=== PATIENT | male | born 1950 | race Caucasian/White ===

== ENCOUNTER 2018-08-03 17:44 | Emergency (ER) | payer MEDICARE ==
[2018-08-03] MEDS ORDERED: Sodium Chloride 0.9% 2.5 ML Syringe FLUSH PRN (20:03)
[2018-08-03] MEDS ORDERED: Sodium Chloride 0.9% 10 ML Syringe FLUSH PRN (20:03)
--- NOTE | 2018-08-03 20:12 | EDM.PDOC ---
ED [facility] GENERAL MEDICAL PROBLEM - General Chief Complaint: Gastrointestinal Problem Stated Complaint: PROBLEMS WITH HERNIA Time Seen by Provider: 08/03/18 19:56 Source of Information: Reports: Patient History Limitations: Reports: No Limitations - History of Present Illness INITIAL COMMENTS - FREE TEXT/NARRATIVE: HISTORY AND PHYSICAL: History of present illness: Patient is a 67-year-old male who presents to the ED today with concern of an infection or an issue with his surgical hernia. Patient states he has a long and complicated abdominal surgical history that entailed bowel resection and multiple repairs of his abdomen following a C. difficile infection in 2016. Patient states that since then he has had a hernia of his incision site that has never bothered him. Patient states over the past couple days he started to have an increase in pain in the hernia and starting yesterday and today he is noticed redness that is begun to expand past the hernia. Patient expresses pain with palpation of the hernia area. Patient states he is having a triple bypass surgery done in a few weeks and is Hernandez. Patient denies any chest pain today. Patient denies fever, chills, chest pain, shortness of breath, or cough. Denies headache, neck stiff ness, change in vision, syncope, or near syncope. Denies nausea, vomiting, abdominal pain, diarrhea, constipation, or dysuria. Has not noted any blood in urine or stool. Patient has been eating and drinking appropriately. Patient also has a history of diabetes and atrial fibrillation. Review of systems: As per history of present illness and below otherwise all systems reviewed and negative. Past medical history: As per history of present illness and as reviewed below otherwise noncontributory. Surgical history: As per history of present illness and as reviewed below otherwise noncontributory. Social history: See social history for further information Family history: As per history of present illness and as reviewed below otherwise noncontributory. Physical exam: Physical exam is limited due to body habitus. General: Patient is alert, oriented, and in no acute distress. Patient sitting comfortably on exam table. HEENT: Atraumatic, normocephalic, pupils equal and reactive bilaterally, negative for conjunctival pallor or scleral icterus, mucous membranes moist, TMs normal bilaterally, throat clear, neck supple, nontender, trachea midline. No drooling or trismus noted. No meningeal signs. No hot potato voice noted. Lungs: Clear to auscultation, breath sounds equal bilaterally, chest nontender. Heart: S1S2, regular rate and rhythm without overt murmur Abdomen: See skin. Morbidly obese. Soft, nondistended, nontender. Negative for masses or hepatosplenomegaly. Negative for costovertebral tenderness. Pelvis: Stable nontender. Genitourinary: Deferred. Rectal: Deferred. Skin: There is a large scarring consistent with surgical history over her entire abdomen. At the top of the vertical scar where the sternum in the abdomen meet is erythematous and painful to palpation. Exam is limited due to pain. Extremities: Atraumatic, negative for cords or calf pain. Neurovascular unremarkable. Neuro: Awake, alert, oriented. Cranial nerves II through XII unremarkable. Cerebellum unremarkable. Motor and sensory unremarkable throughout. Exam nonfocal. Notes: Dr. Bolanos is directly involved in patient care. Soft tissue lesion consistent with abscess. Did discuss this finding as well as all other CT findings and need to have this followed up. Consult Dr. Resendez who states our facility is not equipped to handle patients obesity as well as comorbidities and thinks transfer is necessary. [facility], Dr. Gonzalez/ are accepting of patient transfer via ground EMS. While in the transfer process, patient began to have SVT. Cardizem given. Continued to monitor and patient's heart rate came down from 150's to 110 -120. Voices understanding and is agreeable to plan of care. Denies any further questions or concerns at this time. Diagnostics: CBC, CMP, lipase, abdominal pelvic CT, cardizem, zosyn, vanc, EKG Therapeutics: Saline lock Impression: Soft tissue/abdominal wall abscess Plan: 1. Transfer to [facility] to Dr. Bruce/ via EMS Definitive disposition and diagnosis as appropriate pending reevaluation and review of above. Middle Abdomen Pain Score (Numeric/FACES): 6 - Related Data Allergies Allergy/AdvReac Type Severity Reaction Status Date / Time No Known Allergies Allergy Verified 08/03/18 19:05 Home Meds: Home Meds Aspirin 81 mg PO DAILY 01/11/15 [History] Iron 325 mg PO DAILY 01/11/15 [History] Metoprolol Tartrate [Lopressor] 3 tab PO BID 01/11/15 [History] Multivitamin [Multiple Vitamins] 1 tab PO DAILY 01/11/15 [History] atorvaSTATin [Lipitor] 20 mg PO BEDTIME 01/11/15 [History] metFORMIN [Glucophage] 1,000 mg PO BIDMEALS 01/11/15 [History] Past Medical History Cardiovascular History: Reports: Afib, High Cholesterol, Hypertension Respiratory History: Reports: None Gastrointestinal History: Reports: None Genitourinary History: Reports: None Musculoskeletal History: Reports: Amputation Neurological History: Reports: Neuropathy, Peripheral Psychiatric History: Reports: None Endocrine/Metabolic History: Reports: Diabetes, Type II Hematologic History: Reports: None Immunologic History: Reports: None Oncologic (Cancer) History: Reports: None Other Dermatologic History: surgical incision still healing - Infectious Disease History Infectious Disease History: Reports: C-Difficile, Chicken Pox - Past Surgical History Head Surgeries/Procedures: Reports: None HEENT Surgical History: Reports: Oral Surgery Respiratory Surgical History: Reports: None GI Surgical History: Reports: Other (See Below) Other GI Surgeries/Procedures: mid upper stomach hernia Male Surgical History: Reports: None Neurological Surgical History: Reports: None Musculoskeletal Surgical History: Reports: Amputation Other Musculoskeletal Surgeries/Procedures:: left hand 4 fingers amputation. Oncologic Surgical History: Reports: None Dermatological Surgical History: Reports: None Social & Family History - Family History Family Medical History: Noncontributory - Tobacco Use Smoking Status *Q: Former Smoker Used Tobacco, but Quit: Yes Month/Year Tobacco Last Used: 1988 - Caffeine Use Caffeine Use: Reports: None - Recreational Drug Use Recreational Drug Use: No ED ROS GENERAL - Review of Systems Review Of Systems: ROS reveals no pertinent complaints other than HPI. ED EXAM, GI/ABD - Physical Exam Exam: See Below (See dictation) Course - Vital Signs Last Recorded V/S: Last Vital Signs Temp 36.7 C 08/03/18 18:57 Pulse 118 H 08/03/18 22:47 Resp 18 08/03/18 22:47 BP 133/74 08/03/18 22:47 Pulse Ox 97 08/03/18 22:47 - Orders/Labs/Meds Orders: Active Orders 24 hr Category Date Time Status Piperacillin/Tazobactam [Piperacil-Tazobact] 3.375 gm Med 08/03/18 23:17 Ordered Sodium Chloride 0.9% [Normal Saline] 50 ml IV ONETIME Sodium Chloride 0.9% [Normal Saline] 1,000 ml Med 08/03/18 22:22 Ordered IV STAT Sodium Chloride 0.9% [Saline Flush] Med 08/03/18 20:03 Active 10 ml FLUSH ASDIRECTED PRN Sodium Chloride 0.9% [Saline Flush] Med 08/03/18 20:03 Active 2.5 ml FLUSH ASDIRECTED PRN Vancomycin [Vancocin] 1 gm Med 08/03/18 23:17 Ordered Sodium Chloride 0.9% [Normal Saline] 250 ml IV ONETIME Saline Lock Insert [OM.PC] Stat Oth 08/03/18 20:03 Ordered Medication Orders Sodium Chloride (Normal Saline) 1,000 mls @ 999 mls/hr IV STAT ONE Stop: 08/03/18 23:22 Last Admin: 08/03/18 22:32 Dose: 999 mls/hr Piperacillin Sod/Tazobactam (Sod 3.375 gm/ Sodium Chloride) 50 mls @ 100 mls/ hr IV ONETIME ONE Stop: 08/03/18 23:46 Vancomycin HCl 1 gm/ Sodium (Chloride) 250 mls @ 250 mls/hr IV ONETIME ONE Stop: 08/04/18 00:16 Sodium Chloride (Saline Flush) 10 ml FLUSH ASDIRECTED PRN PRN Reason: Keep Vein Open Last Admin: 08/03/18 21:11 Dose: 10 ml Sodium Chloride (Saline Flush) 2.5 ml FLUSH ASDIRECTED PRN PRN Reason: Keep Vein Open Last Admin: 08/03/18 21:10 Dose: 2.5 ml Labs: Laboratory Tests 08/03/18 08/03/18 Range/Units 20:25 20:25 WBC 12.15 H (4.0-11.0) K/uL RBC 4.65 (4.50-5.90) M/uL Hgb 13.3 (13.0-17.0) g/dL Hct 39.9 (38.0-50.0) % MCV 85.8 (80.0-98.0) fL MCH 28.6 (27.0-32.0) pg MCHC 33.3 (31.0-37.0) g/dL RDW Std Deviation 46.2 (28.0-62.0) fl RDW Coeff of Yvonne 15 (11.0-15.0) % Plt Count 296 (150-400) K/uL MPV 10.70 (7.40-12.00) fL Neut % (Auto) 78.9 (48.0-80.0) % Lymph % (Auto) 12.5 L (16.0-40.0) % [place] % (Auto) 6.7 (0.0-15.0) % Eos % (Auto) 1.6 (0.0-7.0) % Baso % (Auto) 0.3 (0.0-1.5) % Neut # (Auto) 9.6 H (1.4-5.7) K/uL Lymph # (Auto) 1.5 (0.6-2.4) K/uL [place] # (Auto) 0.8 (0.0-0.8) K/uL Eos # (Auto) 0.2 (0.0-0.7) K/uL Baso # (Auto) 0.0 (0.0-0.1) K/uL Nucleated RBC % 0.0 /100WBC Nucleated RBCs # 0 K/uL Sodium 135 L (136-148) mmol/L Potassium 3.2 L (3.5-5.1) mmol/L Chloride 99 (98-107) mmol/L Carbon Dioxide 19.2 L (21.0-32.0) mmol/L BUN 31 H (7.0-18.0) mg/dL Creatinine 1.9 H (0.8-1.3) mg/dL Est Cr Clr Drug Dosing 36.00 mL/min Estimated GFR (MDRD) 35.4 ml/min Glucose 185 H (74-106) mg/dL Calcium 9.0 (8.5-10.1) mg/dL Total Bilirubin 0.4 (0.2-1.0) mg/dL AST 19 (15-37) IU/L ALT 26 (14-63) IU/L Alkaline Phosphatase 77 (46-116) U/L Total Protein 8.2 (6.4-8.2) g/dL Albumin 3.4 (3.4-5.0) g/dL Globulin 4.8 H (2.6-4.0) g/dL Albumin/Globulin Ratio 0.7 L (0.9-1.6) Lipase 370 (73-393) U/L Meds: Medications Generic Name Dose Route Start Last Admin Trade Name Freq PRN Reason Stop Dose Admin Sodium Chloride 1,000 mls @ 999 mls/hr 08/03/18 22:22 08/03/18 22:32 Normal Saline IV 08/03/18 23:22 999 mls/hr STAT ONE Administration Piperacillin Sod/Tazobactam 50 mls @ 100 mls/hr 08/03/18 23:17 Sod 3.375 gm/ Sodium Chloride IV 08/03/18 23:46 ONETIME ONE Vancomycin HCl 1 gm/ Sodium 250 mls @ 250 mls/hr 08/03/18 23:17 Chloride IV 08/04/18 00:16 ONETIME ONE Sodium Chloride 10 ml 08/03/18 20:03 08/03/18 21:11 Saline Flush FLUSH 10 ml ASDIRECTED PRN Administration Keep Vein Open Sodium Chloride 2.5 ml 08/03/18 20:03 08/03/18 21:10 Saline Flush FLUSH 2.5 ml ASDIRECTED PRN Administration Keep Vein Open Discontinued Medications Generic Name Dose Route Start Last Admin Trade Name Freq PRN Reason Stop Dose Admin Diltiazem HCl 20 mg 08/03/18 22:22 08/03/18 22:25 Diltiazem IVPUSH 08/03/18 22:23 20 mg ONETIME ONE Administration Diltiazem HCl Confirm 08/03/18 22:23 08/03/18 22:36 Diltiazem Administered 08/03/18 22:24 Not Given Dose 25 mg .ROUTE .STK-MED ONE Diltiazem HCl 20 mg 08/03/18 23:09 Diltiazem IVPUSH 08/03/18 23:10 ONETIME ONE Departure - Departure Time of Disposition: 23:15 Disposition: DC/Tfer to Acute Hospital 02 Clinical Impression: Abdominal abscess - Discharge Information Referrals: Francesco Henry MD [Primary Care Provider] - Forms: ED Department Discharge - My Orders Last 24 Hours: My Active Orders 08/03/18 20:03 Sodium Chloride 0.9% [Saline Flush] 10 ml FLUSH ASDIRECTED PRN Sodium Chloride 0.9% [Saline Flush] 2.5 ml FLUSH ASDIRECTED PRN Saline Lock Insert [OM.PC] Stat 08/03/18 22:22 Sodium Chloride 0.9% [Normal Saline] 1,000 ml IV STAT 08/03/18 23:17 Piperacillin/Tazobactam [Piperacil-Tazobact] 3.375 gm Sodium Chloride 0.9% [ Normal Saline] 50 ml IV ONETIME Vancomycin [Vancocin] 1 gm Sodium Chloride 0.9% [Normal Saline] 250 ml IV ONETIME - Assessment/Plan Last 24 Hours: My Active Orders 08/03/18 20:03 Sodium Chloride 0.9% [Saline Flush] 10 ml FLUSH ASDIRECTED PRN Sodium Chloride 0.9% [Saline Flush] 2.5 ml FLUSH ASDIRECTED PRN Saline Lock Insert [OM.PC] Stat 08/03/18 22:22 Sodium Chloride 0.9% [Normal Saline] 1,000 ml IV STAT 08/03/18 23:17 Piperacillin/Tazobactam [Piperacil-Tazobact] 3.375 gm Sodium Chloride 0.9% [ Normal Saline] 50 ml IV ONETIME Vancomycin [Vancocin] 1 gm Sodium Chloride 0.9% [Normal Saline] 250 ml IV ONETIME
--- NOTE | 2018-08-03 21:54 | CT ---
INDICATION: Abdominal pain. COMPARISON: None. TECHNIQUE: CT abdomen and pelvis without intravenous or oral contrast; coronal and sagittal reformats. Findings: It does appear the patient had hernia repair in the epigastric region. The transverse colon is underneath the hernia repair site/mesh. A 6 x 2.7 cm soft tissue density in the subcutaneous soft tissues; rule out infection, slice 11 series 201. No abnormal intra pulmonary nodular densities through the lung bases. No evidence of pleural effusion. Normal size cardiac silhouette without any evidence of pericardial effusion. No focal hepatic or splenic pathology. No pancreatic pathology. Cholelithiasis. No adrenal pathology. A 10 x 5.8 mm stone identified in the right renal pelvis at the confluence of the superior and inferior infundibulum , with mild right-sided hydronephrosis. A 4 x 3.4 cm cyst left kidney. A 2.3 x 2 cm isodense lesion on the surface of the left kidney slice 61 series 201; this needs further assessment to rule out a small renal cell carcinoma. No obstructive uropathy or perinephric pathology on the left side. No retroperitoneal lymphadenopathy. No evidence of abdominal or pelvic ascites. No pneumoperitoneum or intestinal obstruction. Redundant sigmoid colon. It does appear the patient has had right hemicolectomy with ileocolic anastomosis. IMPRESSION: 1. Status post ventral hernia repair with the transverse colon underneath the mesh. 2. A 6.1 x 2.7 cm soft tissue density in the subcutaneous soft tissues at the site of hernia repair; rule out information ;rule out abscess. 3. Cholelithiasis. 4. A 10 x 6 mm stone in the right renal pelvis with mild dilatation of the renal calyces. 5. A 2 cm lesion on the surface of the left kidney ;needs further assessment to rule out small solid renal cell carcinoma. Please note that all CT scans at this facility use dose modulation, iterative reconstruction, and/or weight-based dosing when appropriate to reduce radiation dose to as low as reasonably achievable. Dictated by Luis Lorenzo MD @ Aug 03 2018 9:44PM Signed by Dr. Luis Lorenzo @ Aug 03 2018 9:51PM
[2018-08-03] MEDS ORDERED: Sodium Chloride 0.9% 1,000 ML IV ONE (22:22)
[2018-08-03] MEDS ORDERED: Diltiazem 25 MG/5 ML SDV IVPUSH ONE ×2 (22:22→23:09)
[2018-08-03] MEDS ORDERED: Diltiazem 25 MG/5 ML SDV ONE (22:23)
[2018-08-03] MEDS ORDERED: Piperacillin/Tazobactam 3.375 GM in Sodium Chloride 0.9% 50 ML IV ONE (23:17)
[2018-08-04 00:19] VITALS: BP 123/82
== END 2018-08-04 00:19 ==
LOC: MW.ED 17:44
DX: L02.211 Cutaneous abscess of abdominal wall (principal); I48.91 Unspecified atrial fibrillation; E78.00 Pure hypercholesterolemia, unspecified; I10 Essential (primary) hypertension; E11.42 Type 2 diabetes mellitus with diabetic polyneuropathy; Z87.891 Personal history of nicotine dependence; Z79.82 Long term (current) use of aspirin; Z79.899 Other long term (current) drug therapy; Z79.84 Long term (current) use of oral hypoglycemic drugs
CPT/HCPCS: 74176; 80053; 83690; 85025; 93005; 96361; 96365; 96375; 96376; 99285; J2543; J3370; J3490; J7040; J7050; 99284

== ENCOUNTER 2019-10-03 13:29 | Observation (INO) | payer MEDICARE, OTHER ==
[2019-10-03] MEDS ORDERED: Sodium Chloride 0.9% 2.5 ML Syringe FLUSH PRN (13:51)
[2019-10-03] MEDS ORDERED: Sodium Chloride 0.9% 10 ML Syringe FLUSH PRN (13:51)
--- NOTE | 2019-10-03 14:07 | EDM.PDOC ---
ED HPI GENERAL MEDICAL PROBLEM - General Chief Complaint: General Stated Complaint: SENT IN BY DR Damon Time Seen by Provider: 10/03/19 13:49 Source of Information: Reports: Patient History Limitations: Reports: No Limitations - History of Present Illness INITIAL COMMENTS - FREE TEXT/NARRATIVE: 68-year-old male with history of atrial fibrillation, HTN, DM 2, CAD with stent was sent here from cardiology office by Dr. Damon for INR = 14.5 today. He is status post heart cath 1 month ago, at that time he was instructed to hold his Coumadin but he mistakenly continued to take it. He is currently taking aspirin, Plavix, Coumadin 5 mg in the afternoon. He claims he misunderstood Dr. Damon's instructions. He denies any chest pain, abdominal pain, shortness of breath, headache, blurry vision, bruising, mucosal bleeding, nosebleeds, rectal bleeding, nausea, vomiting, diarrhea, black stools, weakness. ROS: A 10-point review of systems, other than pertinent positives and negatives as stated per HPI, is otherwise negative PHYSICAL EXAM General: AOx4, GCS = 15, No distress HEENT: dry mucous membrane, no pale conjunctiva Neck: supple, no meningismus, no Kernig or Brudzinski Cardiac: S1S2 irregular rhythm, regular rate Respiratory: CTAB, no crackles or rales, no wheezing Abdomen: Soft, nontender, no rebound or guarding, nondistended, no pulsatile mass. Back: nontender Musculoskeletal: NVI distally, no deformity Neuro: No focal deficits. Skin: No ecchymosis noted. - Related Data Allergies Allergy/AdvReac Type Severity Reaction Status Date / Time No Known Allergies Allergy Verified 10/03/19 13:42 Home Meds: Home Meds Aspirin 81 mg PO DAILY 01/11/15 [History] Iron 325 mg PO DAILY 01/11/15 [History] Metoprolol Tartrate [Lopressor] 3 tab PO BID 01/11/15 [History] Multivitamin [Multiple Vitamins] 1 tab PO DAILY 01/11/15 [History] atorvaSTATin [Lipitor] 20 mg PO BEDTIME 01/11/15 [History] metFORMIN [Glucophage] 1,000 mg PO BIDMEALS 01/11/15 [History] Past Medical History Cardiovascular History: Reports: Afib, High Cholesterol, Hypertension, Stents Other Cardiovascular History: 5 stents Respiratory History: Reports: None Gastrointestinal History: Reports: None Genitourinary History: Reports: None Musculoskeletal History: Reports: Amputation Neurological History: Reports: Neuropathy, Peripheral Psychiatric History: Reports: None Endocrine/Metabolic History: Reports: Diabetes, Type II Hematologic History: Reports: None Immunologic History: Reports: None Oncologic (Cancer) History: Reports: Colon 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 Other Dermatologic History: surgical incision still healing - Infectious Disease History Infectious Disease History: Reports: Chicken Pox, Measles, Mumps - Past Surgical History Head Surgeries/Procedures: Reports: None HEENT Surgical History: Reports: Oral Surgery Respiratory Surgical History: Reports: None GI Surgical History: Reports: Other (See Below) Other GI Surgeries/Procedures: mid upper stomach hernia Male Surgical History: Reports: None Neurological Surgical History: Reports: None Musculoskeletal Surgical History: Reports: Amputation Other Musculoskeletal Surgeries/Procedures:: left hand 4 fingers amputation. Oncologic Surgical History: Reports: None Dermatological Surgical History: Reports: None Social & Family History - Family History Family Medical History: Noncontributory - Tobacco Use Smoking Status *Q: Never Smoker - Caffeine Use Caffeine Use: Reports: None ED ROS GENERAL - Review of Systems Review Of Systems: Comprehensive ROS is negative, except as noted in HPI. ED EXAM, GENERAL - Physical Exam Exam: See Below (see dictation) EKG INTERPRETATION EKG Date: 10/03/19 Time: 13:36 Rhythm: A-Fib Rate (Beats/Min): 62 QRS: Normal ST-T: Normal QT: Normal EKG Interpretation Comments: Afib Course - Vital Signs Last Recorded V/S: Last Vital Signs Temp 98.6 F 10/03/19 13:37 Pulse 68 10/03/19 13:37 Resp 20 10/03/19 13:37 BP 137/60 10/03/19 13:37 Pulse Ox 99 10/03/19 13:37 - Orders/Labs/Meds Orders: Active Orders 24 hr Category Date Time Status Admission Status [Patient Status] [ADT] Stat ADT 10/03/19 15:09 Ordered Cardiac Monitoring [RC] . DIRECTED Care 10/03/19 13:51 Active EKG Documentation Completion [RC] STAT Care 10/03/19 13:52 Active Pulse Oximetry [RC] ASDIRECTED Care 10/03/19 13:51 Active Phytonadione [AquaMephyton] 5 mg Med 10/03/19 15:09 Ordered Sodium Chloride 0.9% [Normal Saline] 50 ml IV NOW Sodium Chloride 0.9% [Saline Flush] Med 10/03/19 13:51 Active 10 ml FLUSH ASDIRECTED PRN Sodium Chloride 0.9% [Saline Flush] Med 10/03/19 13:51 Active 2.5 ml FLUSH ASDIRECTED PRN Saline Lock Insert [OM.PC] Stat Oth 10/03/19 13:52 Ordered Medication Orders Phytonadione 5 mg/ Sodium (Chloride) 50.5 mls @ 100 mls/hr IV NOW ONE Stop: 10/03/19 15:39 Sodium Chloride (Saline Flush) 10 ml FLUSH ASDIRECTED PRN PRN Reason: Keep Vein Open Last Admin: 10/03/19 13:55 Dose: 10 ml Documented by: [email or web address] Sodium Chloride (Saline Flush) 2.5 ml FLUSH ASDIRECTED PRN PRN Reason: Keep Vein Open Last Admin: 10/03/19 13:55 Dose: 2.5 ml Documented by: [id number] Labs: Laboratory Tests 10/03/19 10/03/19 10/03/19 Range/Units 14:10 14:10 14:10 WBC 7.27 (4.0-11.0) K/uL RBC 3.94 L (4.50-5.90) M/uL Hgb 11.9 L (13.0-17.0) g/dL Hct 36.7 L (38.0-50.0) % MCV 93.1 (80.0-98.0) fL MCH 30.2 (27.0-32.0) pg MCHC 32.4 (31.0-37.0) g/dL RDW Std Deviation 50.2 (28.0-62.0) fl RDW Coeff of Yvonne 15 (11.0-15.0) % Plt Count 221 (150-400) K/uL MPV 10.60 (7.40-12.00) fL Neut % (Auto) 75.5 (48.0-80.0) % Lymph % (Auto) 16.9 (16.0-40.0) % [place] % (Auto) 5.1 (0.0-15.0) % Eos % (Auto) 2.1 (0.0-7.0) % Baso % (Auto) 0.4 (0.0-1.5) % Neut # (Auto) 5.5 (1.4-5.7) K/uL Lymph # (Auto) 1.2 (0.6-2.4) K/uL [place] # (Auto) 0.4 (0.0-0.8) K/uL Eos # (Auto) 0.2 (0.0-0.7) K/uL Baso # (Auto) 0.0 (0.0-0.1) K/uL Nucleated RBC % 0.0 /100WBC Nucleated RBCs # 0 K/uL INR > 14.54 H* APTT 71.7 H (18.6-31.3) SEC Sodium 136 (136-148) mmol/L Potassium 4.0 (3.5-5.1) mmol/L Chloride 103 (98-107) mmol/L Carbon Dioxide 18.4 L (21.0-32.0) mmol/L BUN 28 H (7.0-18.0) mg/dL Creatinine 2.1 H (0.8-1.3) mg/dL Est Cr Clr Drug Dosing 34.28 mL/min Estimated GFR (MDRD) 31.5 ml/min Glucose 227 H (74-106) mg/dL Calcium 8.3 L (8.5-10.1) mg/dL Total Bilirubin 0.4 (0.2-1.0) mg/dL AST 27 (15-37) IU/L ALT 30 (14-63) IU/L Alkaline Phosphatase 72 (46-116) U/L Troponin I < 0.050 (0.000-0.056) ng/mL Total Protein 7.1 (6.4-8.2) g/dL Albumin 3.5 (3.4-5.0) g/dL Globulin 3.6 (2.6-4.0) g/dL Albumin/Globulin Ratio 1.0 (0.9-1.6) Meds: Medications Generic Name Dose Route Start Last Admin Trade Name [place] PRN Reason Stop Dose Admin Phytonadione 5 mg/ Sodium 50.5 mls @ 100 mls/hr 10/03/19 15:09 Chloride IV 10/03/19 15:39 NOW ONE Sodium Chloride 10 ml 10/03/19 13:51 10/03/19 13:55 Saline Flush FLUSH 10 ml ASDIRECTED PRN Administration Keep Vein Open Sodium Chloride 2.5 ml 10/03/19 13:51 10/03/19 13:55 Saline Flush FLUSH 2.5 ml ASDIRECTED PRN Administration Keep Vein Open - Re-Assessments/Exams Free Text/Narrative Re-Assessment/Exam: 10/03/19 15:11 I will give 5mg IV vitamin K for his supratherapeutic INR. Case discussed with Dr. Cook, who agrees to admit to obs/tele. Her documentation supersedes all other documentation on this patient with regard to any conflicts or discrepancies from this point forward. Any emergency conditions have been treated to the ability of the ED prior to admission. Departure - Departure Time of Disposition: 15:12 Disposition: Refer to Observation Condition: Good Clinical Impression: Supratherapeutic INR, JACIEL (acute kidney injury) - Discharge Information *PRESCRIPTION DRUG MONITORING PROGRAM REVIEWED*: Not Applicable *COPY OF PRESCRIPTION DRUG MONITORING REPORT IN PATIENT JOSE LUIS: Not Applicable Referrals: Francesco Henry MD [Primary Care Provider] - Forms: ED Department Discharge Critical Care Note - Critical Care Note Total Time (mins): 40 Comments: The high probability of sudden, clinically significant deterioration in the patient's condition required the highest level of my preparedness to intervene urgently. The services I provided to this patient were to treat and/or prevent clinically significant deterioration. Services included the following: chart data review, reviewing nursing notes and/or old charts, documentation time, planning consultant collaboration regarding findings and treatment options, medication orders and management, direct patient care, vital sign assessments and ordering, interpreting and reviewing diagnostic studies/lab tests. Aggregate critical care time includes only time during which I was engaged in work directly related to the patient's care, as described above, whether at the bedside or elsewhere in the Emergency Department. It did not include time spent performing other reported procedures or the services of residents, students, nurses or physician assistants. Frequent interventions and/or frequent repeat evaluations were required as well as counseling and coordination of care regarding prognosis, treatments, and discussions with patient, staff and consultants. Critical Care (excluding other procedures): 40 minutes Sepsis Event Note (ED) - Evaluation Sepsis Screening Result: No Definite Risk - Focused Exam Vital Signs: Vital Signs Temp Pulse Resp BP Pulse Ox 10/03/19 13:37 98.6 F 68 20 137/60 99 - My Orders Last 24 Hours: My Active Orders 10/03/19 13:51 Cardiac Monitoring [RC] . DIRECTED Pulse Oximetry [RC] ASDIRECTED Sodium Chloride 0.9% [Saline Flush] 10 ml FLUSH ASDIRECTED PRN Sodium Chloride 0.9% [Saline Flush] 2.5 ml FLUSH ASDIRECTED PRN 10/03/19 13:52 EKG Documentation Completion [RC] STAT Saline Lock Insert [OM.PC] Stat 10/03/19 15:09 Admission Status [Patient Status] [ADT] Stat Phytonadione [AquaMephyton] 5 mg Sodium Chloride 0.9% [Normal Saline] 50 ml IV NOW - Assessment/Plan Last 24 Hours: My Active Orders 10/03/19 13:51 Cardiac Monitoring [RC] . DIRECTED Pulse Oximetry [RC] ASDIRECTED Sodium Chloride 0.9% [Saline Flush] 10 ml FLUSH ASDIRECTED PRN Sodium Chloride 0.9% [Saline Flush] 2.5 ml FLUSH ASDIRECTED PRN 10/03/19 13:52 EKG Documentation Completion [RC] STAT Saline Lock Insert [OM.PC] Stat 10/03/19 15:09 Admission Status [Patient Status] [ADT] Stat Phytonadione [AquaMephyton] 5 mg Sodium Chloride 0.9% [Normal Saline] 50 ml IV NOW
[2019-10-03 14:49] LABS: BLOOD UREA NITROGEN,BUN 28 mg/dL (7.0-18.0); CARBON DIOXIDE,CO2 18.4 mmol/L (21.0-32.0); CHLORIDE,CL 103 mmol/L (98-107); GLUCOSE RANDOM 227 mg/dL (74-106); SODIUM,NA 136 mmol/L (136-148)
[2019-10-03] MEDS ORDERED: Phytonadione 5 MG in Sodium Chloride 0.9% 50 ML IV ONE (15:09)
[2019-10-03] MEDS ORDERED: Albuterol/Ipratropium 3.0-0.5 MG/3 ML Neb Soln NEB PRN (15:46)
--- NOTE | 2019-10-03 15:54 | PCM.HP.2 ---
H&P History of Present Illness - General Date of Service: 10/03/19 Admit Problem/Dx: Admission Diagnosis/Problem Admission Diagnosis/Problem Encounter for monitoring coumadin therapy - History of Present Illness Initial Comments - Free Text/Narative: 68-year-old male with history of atrial fibrillation, HTN, DM 2, CAD with stent was sent here from cardiology office due to critical lab value if INR> 14.5 today. He is status post heart cath 1 month ago, at that time he was instructed to hold his Coumadin and follow up with his PCP in a week but he mistakenly continued to take it He took Coumadin 5 mg in the afternoon. He denies any chest pain, abdominal pain, shortness of breath, headache, blurry vision, bruising, mucosal bleeding, nosebleeds, rectal bleeding, nausea, vomiting, diarrhea, black stools, weakness. Rest of the labs were reassuring except for elevated creatinine of 2.1. Patient received 5mg of vit k and was admitted to hospital for further management. - Related Data Allergies/Adverse Reactions: Allergies Allergy/AdvReac Type Severity Reaction Status Date / Time No Known Allergies Allergy Verified 10/03/19 17:10 Home Medications: Home Meds Aspirin 81 mg PO DAILY 01/11/15 [History] Iron 325 mg PO DAILY 01/11/15 [History] Multivitamin [Multiple Vitamins] 1 tab PO DAILY 01/11/15 [History] atorvaSTATin [Lipitor] 20 mg PO BEDTIME 01/11/15 [History] metFORMIN [Glucophage] 1,000 mg PO BIDMEALS 01/11/15 [History] Ascorbic Acid [Vitamin C] 1,000 mg PO DAILY 10/03/19 [History] Digoxin 250 mcg PO DAILY 10/03/19 [History] Diltiazem [Cardizem CD] 120 cap PO DAILY 10/03/19 [History] Loperamide HCl [Anti-Diarrheal] 2 mg PO TIDAC 10/03/19 [History] Pioglitazone [Actos] 15 mg PO DAILY 10/03/19 [History] Potassium Gluconate [Potassium] 99 tab PO BID 10/03/19 [History] Warfarin [Coumadin] 5 mg PO DAILY 10/03/19 [History] Metoprolol Tartrate [Lopressor] 100 mg PO BID tablet 10/04/19 [Rx] Torsemide 30 mg PO DAILY #30 tablet 10/04/19 [Rx] Warfarin Dosing [Coumadin Ask] 1 each PO DAILY@1400 tablet 10/04/19 [Rx] Past Medical History Cardiovascular History: Reports: Afib, High Cholesterol, Hypertension, Stents Other Cardiovascular History: 5 stents Respiratory History: Reports: None Gastrointestinal History: Reports: None Genitourinary History: Reports: None Musculoskeletal History: Reports: Amputation Neurological History: Reports: Neuropathy, Peripheral Psychiatric History: Reports: None Endocrine/Metabolic History: Reports: Diabetes, Type II Hematologic History: Reports: None Immunologic History: Reports: None Oncologic (Cancer) History: Reports: Colon 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 Other Dermatologic History: surgical incision still healing - Infectious Disease History Infectious Disease History: Reports: Chicken Pox, Measles, Mumps - Past Surgical History Head Surgeries/Procedures: Reports: None HEENT Surgical History: Reports: Oral Surgery Respiratory Surgical History: Reports: None GI Surgical History: Reports: Other (See Below) Other GI Surgeries/Procedures: mid upper stomach hernia Male Surgical History: Reports: None Neurological Surgical History: Reports: None Musculoskeletal Surgical History: Reports: Amputation Other Musculoskeletal Surgeries/Procedures:: left hand 4 fingers amputation. Oncologic Surgical History: Reports: None Dermatological Surgical History: Reports: None Social & Family History - Family History Family Medical History: Noncontributory - Tobacco Use Smoking Status *Q: Never Smoker - Caffeine Use Caffeine Use: Reports: None H&P Review of Systems - Review of Systems: Review Of Systems: See Below General: Denies: Fever, Chills, Malaise HEENT: Denies: Dysphasia, Ear Pain Pulmonary: Denies: Shortness of Breath, Wheezing, Pleuritic Chest Pain Cardiovascular: Denies: Chest Pain, Palpitations, Dyspnea on Exertion Gastrointestinal: Denies: Abdominal Pain, Anorexia, Black Stool, Bloody Stool, Constipation, Diarrhea, Hematemesis, Hematochezia, Melena, Mucous in Stool, Nausea, Vomiting Genitourinary: Denies: Dysuria, Frequency, Burning Musculoskeletal: Denies: Neck Pain, Shoulder Pain, Arm Pain Skin: Denies: Cyanosis, Jaundice, Mottled Psychiatric: Denies: Confusion, Depression, Mood Lability Exam - Exam Exam: See Below - Vital Signs Vital Signs: Last Vital Signs Temp 37.0 C 10/03/19 13:37 Pulse 68 10/03/19 13:37 Resp 20 10/03/19 13:37 BP 137/60 10/03/19 13:37 Pulse Ox 99 10/03/19 13:37 Weight: 116.12 kg - Exam General: Alert, Oriented Neck: Supple, Trachea Midline Lungs: Clear to Auscultation, Normal Respiratory Effort Cardiovascular: Regular Rate, Regular Rhythm GI/Abdominal Exam: Normal Bowel Sounds, Soft, Non-Tender Extremities: Normal Inspection, Normal Range of Motion, Non-Tender - Patient Data Lab Results Last 24 hrs: Laboratory Results - last 24 hr 10/03/19 10/03/19 10/03/19 Range/Units 14:10 14:10 14:10 WBC 7.27 (4.0-11.0) K/uL RBC 3.94 L (4.50-5.90) M/uL Hgb 11.9 L (13.0-17.0) g/dL Hct 36.7 L (38.0-50.0) % MCV 93.1 (80.0-98.0) fL MCH 30.2 (27.0-32.0) pg MCHC 32.4 (31.0-37.0) g/dL RDW Std Deviation 50.2 (28.0-62.0) fl RDW Coeff of Yvonne 15 (11.0-15.0) % Plt Count 221 (150-400) K/uL MPV 10.60 (7.40-12.00) fL Neut % (Auto) 75.5 (48.0-80.0) % Lymph % (Auto) 16.9 (16.0-40.0) % [place] % (Auto) 5.1 (0.0-15.0) % Eos % (Auto) 2.1 (0.0-7.0) % Baso % (Auto) 0.4 (0.0-1.5) % Neut # (Auto) 5.5 (1.4-5.7) K/uL Lymph # (Auto) 1.2 (0.6-2.4) K/uL [place] # (Auto) 0.4 (0.0-0.8) K/uL Eos # (Auto) 0.2 (0.0-0.7) K/uL Baso # (Auto) 0.0 (0.0-0.1) K/uL Nucleated RBC % 0.0 /100WBC Nucleated RBCs # 0 K/uL INR > 14.54 H* APTT 71.7 H (18.6-31.3) SEC Sodium 136 (136-148) mmol/L Potassium 4.0 (3.5-5.1) mmol/L Chloride 103 (98-107) mmol/L Carbon Dioxide 18.4 L (21.0-32.0) mmol/L BUN 28 H (7.0-18.0) mg/dL Creatinine 2.1 H (0.8-1.3) mg/dL Est Cr Clr Drug Dosing 34.28 mL/min Estimated GFR (MDRD) 31.5 ml/min Glucose 227 H (74-106) mg/dL Calcium 8.3 L (8.5-10.1) mg/dL Total Bilirubin 0.4 (0.2-1.0) mg/dL AST 27 (15-37) IU/L ALT 30 (14-63) IU/L Alkaline Phosphatase 72 (46-116) U/L Troponin I < 0.050 (0.000-0.056) ng/mL Total Protein 7.1 (6.4-8.2) g/dL Albumin 3.5 (3.4-5.0) g/dL Globulin 3.6 (2.6-4.0) g/dL Albumin/Globulin Ratio 1.0 (0.9-1.6) Result Diagrams: 10/04/19 05:37 10/04/19 05:37 Sepsis Event Note - Evaluation Sepsis Screening Result: No Definite Risk - Focused Exam Vital Signs: Vital Signs Temp Pulse Resp BP Pulse Ox 10/03/19 13:37 37.0 C 68 20 137/60 99 Date Exam was Performed: 10/04/19 Time Exam was Performed: 12:48 - Problem List (1) JACIEL (acute kidney injury) SNOMED Code(s): 92455225, 30590769 ICD Code: N17.9 - ACUTE KIDNEY FAILURE, UNSPECIFIED Status: Acute Current Visit: Yes (2) Supratherapeutic INR SNOMED Code(s): 409527319 ICD Code: R79.1 - ABNORMAL COAGULATION PROFILE Status: Acute Current Visit: Yes (3) CAD (coronary artery disease) SNOMED Code(s): 45668119 ICD Code: I25.10 - ATHSCL HEART DISEASE OF [place] CORONARY ARTERY W/O ANG PCTRS Status: Acute Current Visit: Yes Problem List Initiated/Reviewed/Updated: Yes Orders Last 24hrs: Active Orders 24 hr Category Date Time Status Admission Status [Patient Status] [ADT] Stat ADT 10/03/19 15:09 Active Ambulate [RC] ASDIRECTED Care 10/03/19 15:46 Active Antiembolic Devices [RC] PER UNIT ROUTINE Care 10/03/19 15:48 Active Cardiac Monitoring [RC] . DIRECTED Care 10/03/19 13:51 Active Oxygen Therapy [RC] PRN Care 10/03/19 15:46 Active Pulse Oximetry [RC] PRN Care 10/03/19 15:47 Active RT Aerosol Therapy [RC] ASDIRECTED Care 10/03/19 15:50 Active VTE/DVT Education [RC] PER UNIT ROUTINE Care 10/03/19 15:46 Active Vital Signs [RC] Q4H Care 10/03/19 15:46 Active Heart Healthy Diet [DIET] Diet 10/03/19 Dinner Active BMP [BASIC METABOLIC PANEL,BMP] [CHEM] AM Lab 10/04/19 05:11 Ordered CBC WITH AUTO DIFF [HEME] AM Lab 10/04/19 05:11 Ordered CORONAVIRUS COVID-19 PCR PHL Stat Lab 10/03/19 15:32 Ordered ELECTROLYTES,URINE RANDOM [URCHEM] Routine Lab 10/03/19 15:50 Ordered INR,PT,PROTHROMBIN TIME [COAG] AM Lab 10/04/19 05:11 Ordered INR,PT,PROTHROMBIN TIME [COAG] AM Lab 10/05/19 05:11 Ordered INR,PT,PROTHROMBIN TIME [COAG] AM Lab 10/06/19 05:11 Ordered INR,PT,PROTHROMBIN TIME [COAG] AM Lab 10/07/19 05:11 Ordered MAGNESIUM [CHEM] AM Lab 10/04/19 05:11 Ordered PHOSPHORUS [CHEM] AM Lab 10/04/19 05:11 Ordered Albuterol/Ipratropium [DuoNeb 3.0-0.5 MG/3 ML] Med 10/03/19 15:46 Active 3 ml NEB Q4HRRT PRN Lactated Ringers [Ringers, Lactated] 1,000 ml Med 10/03/19 16:00 Active IV ASDIRECTED Sodium Chloride 0.9% [Saline Flush] Med 10/03/19 13:51 Active 10 ml FLUSH ASDIRECTED PRN Sodium Chloride 0.9% [Saline Flush] Med 10/03/19 13:51 Active 2.5 ml FLUSH ASDIRECTED PRN Saline Lock Insert [OM.PC] Stat Ot 10/03/19 13:52 Ordered Sequential Compression Device [OM.PC] Per Unit Routine Ot 10/03/19 15:47 Ordered Medication Orders Albuterol/Ipratropium (Duoneb 3.0-0.5 Mg/3 Ml) 3 ml NEB Q4HRRT PRN PRN Reason: Shortness Of Breath/wheezing Lactated Ringer's (Ringers, Lactated) 1,000 mls @ 125 mls/hr IV ASDIRECTED [place] Sodium Chloride (Saline Flush) 10 ml FLUSH ASDIRECTED PRN PRN Reason: Keep Vein Open Last Admin: 10/03/19 13:55 Dose: 10 ml Documented by: [email or web address] Sodium Chloride (Saline Flush) 2.5 ml FLUSH ASDIRECTED PRN PRN Reason: Keep Vein Open Last Admin: 10/03/19 13:55 Dose: 2.5 ml Documented by: [id number] Assessment/Plan Comment:: 68 y/o M admitted for supratherapeutic INR and JACIEL admit to obs tele s/p vit K 5 mg administration check daily INR start IV fluids, total 2 lts over 24 hours check urine electrolytes Resume home meds, hold lasix Monitor and replete electrolytes as needed Heparin for dvt ppx cardiac diet
[2019-10-03] MEDS ORDERED: Lactated Ringers 1,000 ML IV SCH (16:00)
[2019-10-03] MEDS: Insulin Aspart 100 Units/ML 3 ML Pen SUBCUT SCH (17:05)
[2019-10-03] MEDS ORDERED: Magnesium Sulfate/Water 2 GM in Premix Bag 1 BAG IV ONE (17:07)
[2019-10-03] MEDS ORDERED: Sodium Chloride 0.9% 1,000 ML IV SCH (19:15)
[2019-10-03] MEDS ORDERED: Metoprolol Tartrate 25 MG Tab PO SCH (21:00)
[2019-10-03] MEDS ORDERED: atorvaSTATin 20 MG Tab PO SCH (21:00)
[2019-10-03] MEDS: Metoprolol Tartrate 50 MG Tab PO SCH ×2 (21:43→23:10)
[2019-10-04 05:59] LABS: HEMOGLOBIN A1C 6.6 % (4.5-6.2)
[2019-10-04 06:05] LABS: CARBON DIOXIDE,CO2 23.1 mmol/L (21.0-32.0); POTASSIUM,K 3.9 mmol/L (3.5-5.1)
[2019-10-04] MEDS: Insulin Aspart 100 Units/ML 3 ML Pen SUBCUT SCH ×2 (07:04→11:36)
[2019-10-04] MEDS: Metoprolol Tartrate 50 MG Tab PO SCH ×2 (08:37→08:40)
[2019-10-04] MEDS ORDERED: Diltiazem 120 MG Cap.CD PO SCH (09:00)
[2019-10-04] MEDS ORDERED: Multivitamin Tab PO SCH (09:00)
[2019-10-04] MEDS ORDERED: Ascorbic Acid 500 MG Tab PO SCH (09:00)
[2019-10-04] MEDS ORDERED: Digoxin 250 MCG Tab PO SCH (09:00)
[2019-10-04] MEDS ORDERED: Warfarin 2.5 MG Tab PO ONE ×2 (11:30→14:00)
[2019-10-04 11:36] VITALS: BP 158/75; PULSE 55
--- NOTE | 2019-10-04 11:54 | PCM.DCSUM1 ---
Discharge Summary - Hospital Course Free Text/Narrative:: 68-year-old male with history of atrial fibrillation, HTN, DM 2, CAD with stent was sent here from cardiology office due to critical lab value if INR> 14.5 today. He is status post heart cath 1 month ago, at that time he was instructed to hold his Coumadin and follow up with his PCP in a week but he mistakenly continued to take it He took Coumadin 5 mg in the afternoon. He denies any chest pain, abdominal pain, shortness of breath, headache, blurry vision, bruising, mucosal bleeding, nosebleeds, rectal bleeding, nausea, vomiting, diarrhea, black stools, weakness. Rest of the labs were reassuring except for elevated creatinine of 2.1. Patient received 5mg of vit k and was admitted to hospital for further management. Patients home meds were resumed but his ASA, and Coumadin was held, next AM his INR improved to 2.1, he had no bleeding, stable Hb, Per uke driver recommended Plavix was stopped and continued asa and Coumadin upon dc. Patient was recommend to recheck INR on Monday and fu with his PCP upon dc. - Discharge Data Discharge Date: 10/04/19 Discharge Disposition: Home, Self-Care 01 Condition: Stable - Referral to Home Health Primary Care Physician: Francesco Henry MD - Discharge Diagnosis/Problem(s) (1) JACIEL (acute kidney injury) SNOMED Code(s): 89036699, [id number] ICD Code: N17.9 - ACUTE KIDNEY FAILURE, UNSPECIFIED Status: Acute Current Visit: Yes (2) Supratherapeutic INR SNOMED Code(s): 667693819 ICD Code: R79.1 - ABNORMAL COAGULATION PROFILE Status: Acute Current Visit: Yes (3) CAD (coronary artery disease) SNOMED Code(s): 88173083 ICD Code: I25.10 - ATHSCL HEART DISEASE OF [place] CORONARY ARTERY W/O ANG PCTRS Status: Acute Current Visit: Yes - Patient Instructions Diet: Heart Healthy Diet Fluid Restriction: 2000 mL Driving: May Drive Today Showering/Bathing: May Shower Notify Provider of: Fever, Increased Pain, Swelling and Redness, Drainage, Nausea and/or Vomiting - Discharge Plan *PRESCRIPTION DRUG MONITORING PROGRAM REVIEWED*: Not Applicable *COPY OF PRESCRIPTION DRUG MONITORING REPORT IN PATIENT JOSE LUIS: Not Applicable Prescriptions/Med Rec: Torsemide 30 mg PO DAILY #30 tablet Home Medications: Home Meds Aspirin 81 mg PO DAILY 01/11/15 [History] Iron 325 mg PO DAILY 01/11/15 [History] Multivitamin [Multiple Vitamins] 1 tab PO DAILY 01/11/15 [History] atorvaSTATin [Lipitor] 20 mg PO BEDTIME 01/11/15 [History] metFORMIN [Glucophage] 1,000 mg PO BIDMEALS 01/11/15 [History] Ascorbic Acid [Vitamin C] 1,000 mg PO DAILY 10/03/19 [History] Digoxin 250 mcg PO DAILY 10/03/19 [History] Diltiazem [Cardizem CD] 120 cap PO DAILY 10/03/19 [History] Loperamide HCl [Anti-Diarrheal] 2 mg PO TIDAC 10/03/19 [History] Pioglitazone [Actos] 15 mg PO DAILY 10/03/19 [History] Potassium Gluconate [Potassium] 99 tab PO BID 10/03/19 [History] Warfarin [Coumadin] 5 mg PO DAILY 10/03/19 [History] Metoprolol Tartrate [Lopressor] 100 mg PO BID tablet 10/04/19 [Rx] Torsemide 30 mg PO DAILY #30 tablet 10/04/19 [Rx] Warfarin Dosing [Coumadin Ask] 1 each PO DAILY@1400 tablet 10/04/19 [Rx] Patient Handouts: Torsemide tablets, What You Need to Know About Warfarin, Prothrombin Time, International Normalized Ratio Test Referrals: Vishal Craven MD [Physician] - (Call clinic on Monday for follow-up appointment.) Francesco Henry MD [Primary Care Provider] - (follow-up in 1 week.) - Discharge Summary/Plan Comment DC Time >30 min.: Yes (counselling about discharge meds) - Patient Data Vitals - Most Recent: Last Vital Signs Temp 36.2 C 10/04/19 11:35 Pulse 55 L 10/04/19 11:35 Resp 17 10/04/19 11:35 BP 158/75 H 10/04/19 11:35 Pulse Ox 99 10/04/19 11:35 Weight - Most Recent: 116.12 kg I&O - Last 24 hours: Intake & Output 10/03/19 10/04/19 10/04/19 22:59 06:59 14:59 Intake Total 490 1253 Output Total 300 750 Balance 190 503 Lab Results - Last 24 hrs: Laboratory Results - last 24 hr 10/03/19 10/03/19 10/03/19 Range/Units 14:10 14:10 14:10 WBC 7.27 (4.0-11.0) K/uL RBC 3.94 L (4.50-5.90) M/uL Hgb 11.9 L (13.0-17.0) g/dL Hct 36.7 L (38.0-50.0) % MCV 93.1 (80.0-98.0) fL MCH 30.2 (27.0-32.0) pg MCHC 32.4 (31.0-37.0) g/dL RDW Std Deviation 50.2 (28.0-62.0) fl RDW Coeff of Yvonne 15 (11.0-15.0) % Plt Count 221 (150-400) K/uL MPV 10.60 (7.40-12.00) fL Neut % (Auto) 75.5 (48.0-80.0) % Lymph % (Auto) 16.9 (16.0-40.0) % [place] % (Auto) 5.1 (0.0-15.0) % Eos % (Auto) 2.1 (0.0-7.0) % Baso % (Auto) 0.4 (0.0-1.5) % Neut # (Auto) 5.5 (1.4-5.7) K/uL Lymph # (Auto) 1.2 (0.6-2.4) K/uL [place] # (Auto) 0.4 (0.0-0.8) K/uL Eos # (Auto) 0.2 (0.0-0.7) K/uL Baso # (Auto) 0.0 (0.0-0.1) K/uL Nucleated RBC % 0.0 /100WBC Nucleated RBCs # 0 K/uL INR > 14.54 H* APTT 71.7 H (18.6-31.3) SEC Sodium 136 (136-148) mmol/L Potassium 4.0 (3.5-5.1) mmol/L Chloride 103 (98-107) mmol/L Carbon Dioxide 18.4 L (21.0-32.0) mmol/L BUN 28 H (7.0-18.0) mg/dL Creatinine 2.1 H (0.8-1.3) mg/dL Est Cr Clr Drug Dosing 34.28 mL/min Estimated GFR (MDRD) 31.5 ml/min Glucose 227 H (74-106) mg/dL POC Glucose (60-110) mg/dL Hemoglobin A1c (4.5-6.2) % Calcium 8.3 L (8.5-10.1) mg/dL Phosphorus (2.6-4.7) mg/dL Magnesium (1.8-2.4) mg/dL Total Bilirubin 0.4 (0.2-1.0) mg/dL AST 27 (15-37) IU/L ALT 30 (14-63) IU/L Alkaline Phosphatase 72 (46-116) U/L Troponin I < 0.050 (0.000-0.056) ng/mL Total Protein 7.1 (6.4-8.2) g/dL Albumin 3.5 (3.4-5.0) g/dL Globulin 3.6 (2.6-4.0) g/dL Albumin/Globulin Ratio 1.0 (0.9-1.6) Ur Random Sodium (40.0-220.0) mmol/L Ur Random Potassium mmol/L Ur Random Chloride mmol/L SARS-CoV-2 RNA (RT-PCR) (NEGATIVE) 10/03/19 10/03/19 10/03/19 Range/Units 14:10 15:42 17:05 WBC (4.0-11.0) K/uL RBC (4.50-5.90) M/uL Hgb (13.0-17.0) g/dL Hct (38.0-50.0) % MCV (80.0-98.0) fL MCH (27.0-32.0) pg MCHC (31.0-37.0) g/dL RDW Std Deviation (28.0-62.0) fl RDW Coeff of Yvonne (11.0-15.0) % Plt Count (150-400) K/uL MPV (7.40-12.00) fL Neut % (Auto) (48.0-80.0) % Lymph % (Auto) (16.0-40.0) % [place] % (Auto) (0.0-15.0) % Eos % (Auto) (0.0-7.0) % Baso % (Auto) (0.0-1.5) % Neut # (Auto) (1.4-5.7) K/uL Lymph # (Auto) (0.6-2.4) K/uL [place] # (Auto) (0.0-0.8) K/uL Eos # (Auto) (0.0-0.7) K/uL Baso # (Auto) (0.0-0.1) K/uL Nucleated RBC % /100WBC Nucleated RBCs # K/uL INR APTT (18.6-31.3) SEC Sodium (136-148) mmol/L Potassium (3.5-5.1) mmol/L Chloride (98-107) mmol/L Carbon Dioxide (21.0-32.0) mmol/L BUN (7.0-18.0) mg/dL Creatinine (0.8-1.3) mg/dL Est Cr Clr Drug Dosing mL/min Estimated GFR (MDRD) ml/min Glucose (74-106) mg/dL POC Glucose 93 (60-110) mg/dL Hemoglobin A1c (4.5-6.2) % Calcium (8.5-10.1) mg/dL Phosphorus 3.4 (2.6-4.7) mg/dL Magnesium 1.8 (1.8-2.4) mg/dL Total Bilirubin (0.2-1.0) mg/dL AST (15-37) IU/L ALT (14-63) IU/L Alkaline Phosphatase (46-116) U/L Troponin I (0.000-0.056) ng/mL Total Protein (6.4-8.2) g/dL Albumin (3.4-5.0) g/dL Globulin (2.6-4.0) g/dL Albumin/Globulin Ratio (0.9-1.6) Ur Random Sodium (40.0-220.0) mmol/L Ur Random Potassium mmol/L Ur Random Chloride mmol/L SARS-CoV-2 RNA (RT-PCR) NEGATIVE (NEGATIVE) 10/03/19 10/04/19 10/04/19 Range/Units 21:40 05:37 05:37 WBC 5.90 (4.0-11.0) K/uL RBC 3.85 L (4.50-5.90) M/uL Hgb 11.5 L (13.0-17.0) g/dL Hct 36.0 L (38.0-50.0) % MCV 93.5 (80.0-98.0) fL MCH 29.9 (27.0-32.0) pg MCHC 31.9 (31.0-37.0) g/dL RDW Std Deviation 50.0 (28.0-62.0) fl RDW Coeff of Yvonne 15 (11.0-15.0) % Plt Count 198 (150-400) K/uL MPV 10.50 (7.40-12.00) fL Neut % (Auto) 70.1 (48.0-80.0) % Lymph % (Auto) 18.0 (16.0-40.0) % [place] % (Auto) 8.5 (0.0-15.0) % Eos % (Auto) 2.9 (0.0-7.0) % Baso % (Auto) 0.5 (0.0-1.5) % Neut # (Auto) 4.1 (1.4-5.7) K/uL Lymph # (Auto) 1.1 (0.6-2.4) K/uL [place] # (Auto) 0.5 (0.0-0.8) K/uL Eos # (Auto) 0.2 (0.0-0.7) K/uL Baso # (Auto) 0.0 (0.0-0.1) K/uL Nucleated RBC % 0.0 /100WBC Nucleated RBCs # 0 K/uL INR 2.13 APTT (18.6-31.3) SEC Sodium (136-148) mmol/L Potassium (3.5-5.1) mmol/L Chloride (98-107) mmol/L Carbon Dioxide (21.0-32.0) mmol/L BUN (7.0-18.0) mg/dL Creatinine (0.8-1.3) mg/dL Est Cr Clr Drug Dosing mL/min Estimated GFR (MDRD) ml/min Glucose (74-106) mg/dL POC Glucose (60-110) mg/dL Hemoglobin A1c (4.5-6.2) % Calcium (8.5-10.1) mg/dL Phosphorus (2.6-4.7) mg/dL Magnesium (1.8-2.4) mg/dL Total Bilirubin (0.2-1.0) mg/dL AST (15-37) IU/L ALT (14-63) IU/L Alkaline Phosphatase (46-116) U/L Troponin I (0.000-0.056) ng/mL Total Protein (6.4-8.2) g/dL Albumin (3.4-5.0) g/dL Globulin (2.6-4.0) g/dL Albumin/Globulin Ratio (0.9-1.6) Ur Random Sodium 48.0 (40.0-220.0) mmol/L Ur Random Potassium 33.6 mmol/L Ur Random Chloride 99 mmol/L SARS-CoV-2 RNA (RT-PCR) (NEGATIVE) 10/04/19 10/04/19 10/04/19 Range/Units 05:37 05:37 05:58 WBC (4.0-11.0) K/uL RBC (4.50-5.90) M/uL Hgb (13.0-17.0) g/dL Hct (38.0-50.0) % MCV (80.0-98.0) fL MCH (27.0-32.0) pg MCHC (31.0-37.0) g/dL RDW Std Deviation (28.0-62.0) fl RDW Coeff of Yvonne (11.0-15.0) % Plt Count (150-400) K/uL MPV (7.40-12.00) fL Neut % (Auto) (48.0-80.0) % Lymph % (Auto) (16.0-40.0) % [place] % (Auto) (0.0-15.0) % Eos % (Auto) (0.0-7.0) % Baso % (Auto) (0.0-1.5) % Neut # (Auto) (1.4-5.7) K/uL Lymph # (Auto) (0.6-2.4) K/uL [place] # (Auto) (0.0-0.8) K/uL Eos # (Auto) (0.0-0.7) K/uL Baso # (Auto) (0.0-0.1) K/uL Nucleated RBC % /100WBC Nucleated RBCs # K/uL INR APTT (18.6-31.3) SEC Sodium 140 (136-148) mmol/L Potassium 3.9 (3.5-5.1) mmol/L Chloride 105 (98-107) mmol/L Carbon Dioxide 23.1 (21.0-32.0) mmol/L BUN 26 H (7.0-18.0) mg/dL Creatinine 1.8 H (0.8-1.3) mg/dL Est Cr Clr Drug Dosing 39.99 mL/min Estimated GFR (MDRD) 37.6 ml/min Glucose 97 (74-106) mg/dL POC Glucose 82 (60-110) mg/dL Hemoglobin A1c 6.6 H (4.5-6.2) % Calcium 8.2 L (8.5-10.1) mg/dL Phosphorus 3.5 (2.6-4.7) mg/dL Magnesium 2.2 (1.8-2.4) mg/dL Total Bilirubin (0.2-1.0) mg/dL AST (15-37) IU/L ALT (14-63) IU/L Alkaline Phosphatase (46-116) U/L Troponin I (0.000-0.056) ng/mL Total Protein (6.4-8.2) g/dL Albumin (3.4-5.0) g/dL Globulin (2.6-4.0) g/dL Albumin/Globulin Ratio (0.9-1.6) Ur Random Sodium (40.0-220.0) mmol/L Ur Random Potassium mmol/L Ur Random Chloride mmol/L SARS-CoV-2 RNA (RT-PCR) (NEGATIVE) 10/04/19 Range/Units 11:21 WBC (4.0-11.0) K/uL RBC (4.50-5.90) M/uL Hgb (13.0-17.0) g/dL Hct (38.0-50.0) % MCV (80.0-98.0) fL MCH (27.0-32.0) pg MCHC (31.0-37.0) g/dL RDW Std Deviation (28.0-62.0) fl RDW Coeff of Yvonne (11.0-15.0) % Plt Count (150-400) K/uL MPV (7.40-12.00) fL Neut % (Auto) (48.0-80.0) % Lymph % (Auto) (16.0-40.0) % [place] % (Auto) (0.0-15.0) % Eos % (Auto) (0.0-7.0) % Baso % (Auto) (0.0-1.5) % Neut # (Auto) (1.4-5.7) K/uL Lymph # (Auto) (0.6-2.4) K/uL [place] # (Auto) (0.0-0.8) K/uL Eos # (Auto) (0.0-0.7) K/uL Baso # (Auto) (0.0-0.1) K/uL Nucleated RBC % /100WBC Nucleated RBCs # K/uL INR APTT (18.6-31.3) SEC Sodium (136-148) mmol/L Potassium (3.5-5.1) mmol/L Chloride (98-107) mmol/L Carbon Dioxide (21.0-32.0) mmol/L BUN (7.0-18.0) mg/dL Creatinine (0.8-1.3) mg/dL Est Cr Clr Drug Dosing mL/min Estimated GFR (MDRD) ml/min Glucose (74-106) mg/dL POC Glucose 116 H (60-110) mg/dL Hemoglobin A1c (4.5-6.2) % Calcium (8.5-10.1) mg/dL Phosphorus (2.6-4.7) mg/dL Magnesium (1.8-2.4) mg/dL Total Bilirubin (0.2-1.0) mg/dL AST (15-37) IU/L ALT (14-63) IU/L Alkaline Phosphatase (46-116) U/L Troponin I (0.000-0.056) ng/mL Total Protein (6.4-8.2) g/dL Albumin (3.4-5.0) g/dL Globulin (2.6-4.0) g/dL Albumin/Globulin Ratio (0.9-1.6) Ur Random Sodium (40.0-220.0) mmol/L Ur Random Potassium mmol/L Ur Random Chloride mmol/L SARS-CoV-2 RNA (RT-PCR) (NEGATIVE) Med Orders - Current: Current Medications Albuterol/Ipratropium (Duoneb 3.0-0.5 Mg/3 Ml) 3 ml NEB Q4HRRT PRN PRN Reason: Shortness Of Breath/wheezing Ascorbic Acid (Vitamin C) 1,000 mg PO DAILY [facility] Last Admin: 10/04/19 08:36 Dose: 1,000 mg Documented by: Atorvastatin Calcium (Lipitor) 20 mg PO BEDTIME [facility] Last Admin: 10/03/19 21:48 Dose: 20 mg Documented by: Digoxin (Lanoxin) 250 mcg PO DAILY [facility] Diltiazem HCl (Cardizem Cd) 120 mg PO DAILY [facility] Last Admin: 10/04/19 08:36 Dose: 120 mg Documented by: Insulin Aspart (Novolog) 0 unit SUBCUT TIDAC [facility]; Protocol Last Admin: 10/04/19 11:36 Dose: Not Given Documented by: Metoprolol Tartrate (Lopressor) 100 mg PO BID [facility] Last Admin: 10/04/19 08:40 Dose: 100 mg Documented by: Multivitamins/Minerals/Vitamin C (Tab-A-Jaswinder) 1 tab PO DAILY [facility] Last Admin: 10/04/19 08:36 Dose: 1 tab Documented by: Sodium Chloride (Saline Flush) 10 ml FLUSH ASDIRECTED PRN PRN Reason: Keep Vein Open Last Admin: 10/03/19 13:55 Dose: 10 ml Documented by: Sodium Chloride (Saline Flush) 2.5 ml FLUSH ASDIRECTED PRN PRN Reason: Keep Vein Open Last Admin: 10/03/19 13:55 Dose: 2.5 ml Documented by: Warfarin Sodium (Coumadin Ask) 1 each PO DAILY@1400 [facility] Discontinued Medications Phytonadione 5 mg/ Sodium (Chloride) 50.5 mls @ 100 mls/hr IV NOW ONE Stop: 10/03/19 15:39 Last Admin: 10/03/19 15:43 Dose: 100 mls/hr Documented by: Lactated Ringer's (Ringers, Lactated) 1,000 mls @ 100 mls/hr IV ASDIRECTED [facility] Stop: 10/04/19 06:00 Last Admin: 10/03/19 16:59 Dose: 125 mls/hr Documented by: Magnesium Sulfate 2 gm/ Premix 50 mls @ 50 mls/hr IV ONETIME ONE Stop: 10/03/19 18:06 Last Admin: 10/03/19 18:18 Dose: 50 mls/hr Documented by: Sodium Chloride (Normal Saline) 1,000 mls @ 100 mls/hr IV ASDIRECTED [facility] Stop: 10/04/19 06:00 Last Admin: 10/03/19 19:44 Dose: 100 mls/hr Documented by: Metoprolol Tartrate (Lopressor) 75 mg PO BID [facility] Warfarin Sodium (Coumadin) 2.5 mg PO DAILY@1130 ONE Stop: 10/04/19 11:31 Last Admin: 10/04/19 11:52 Dose: 2.5 mg Documented by:
== END 2019-10-04 12:45 | disposition home or self-care (01) ==
LOC: MW.ED 13:29 → MW.MS 15:28
PROVIDERS: ADMIT Student in an Organized Health Care Education/Training Program; ATTEND Student in an Organized Health Care Education/Training Program
DX: N17.9 Acute kidney failure, unspecified (principal); R79.1 Abnormal coagulation profile; E11.40 Type 2 diabetes mellitus with diabetic neuropathy, unspecified; E78.00 Pure hypercholesterolemia, unspecified; I10 Essential (primary) hypertension; I48.91 Unspecified atrial fibrillation; I25.10 Atherosclerotic heart disease of native coronary artery without angina pectoris; Z20.828 Contact with and (suspected) exposure to other viral communicable diseases; Z95.5 Presence of coronary angioplasty implant and graft; Z79.82 Long term (current) use of aspirin; Z79.84 Long term (current) use of oral hypoglycemic drugs; Z79.899 Other long term (current) drug therapy; Z79.01 Long term (current) use of anticoagulants
CPT/HCPCS: 36415; 80048; 80053; 82436; 82962; 83036; 83735; 84100; 84133; 84300; 84484; 85025; 85610; 85730; 93005; A9270-GY; J3430; J3475; J7030; J7050; J7120; U0002

== ENCOUNTER 2020-08-24 11:05 | Day surgery (SDC) | payer MEDICARE, OTHER ==
[~2020-08-24 11:05] MED LIST: Bupivacaine 0.5% 10 ML SDV ONE; Glycopyrrolate 0.2 MG/ML SDV ONE; Lactated Ringers 1,000 ML IV SCH; Lidocaine 1% 20 ML MDV ONE; Midazolam 1 MG/ML 2 ML SDV ONE; Propofol 200 MG/20 ML SDV ONE; fentaNYL 100 MCG/2 ML SDV ONE
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
[2020-08-24] MEDS ORDERED: Ondansetron 4 MG/2 ML SDV ONE (11:53)
[2020-08-24] MEDS ORDERED: HYDROmorphone 2 MG/ML Syringe IVPUSH PRN (12:46)
[2020-08-24] MEDS ORDERED: fentaNYL 100 MCG/2 ML SDV IVPUSH PRN (12:46)
[2020-08-24] MEDS ORDERED: Albuterol 0.083% 2.5 MG/3 ML Neb Soln NEB PRN (12:46)
[2020-08-24] MEDS ORDERED: Morphine 10 MG/ML Syringe IVPUSH PRN (12:46)
[2020-08-24] MEDS ORDERED: Metoclopramide 10 MG/2 ML SDV IVPUSH PRN (12:46)
[2020-08-24] MEDS ORDERED: Ondansetron 4 MG/2 ML SDV IVPUSH PRN (12:46)
[2020-08-24] MEDS ORDERED: Naloxone 0.4 MG/ML Syringe IVPUSH PRN (12:46)
[2020-08-24] MEDS ORDERED: Acetaminophen/HYDROcodone 325-5 MG Tab PO PRN (13:24)
--- NOTE | 2020-08-24 13:27 | PCM.OPNOTE ---
- General Post-Op/Procedure Note Date of Surgery/Procedure: 08/24/20 Operative Procedure(s): Excision superficial spreading melanoma site, left forearm with layered 7.5 cm closure. Pre Op Diagnosis: superficial spreading melanoma, left forearm Post-Op Diagnosis: Same Anesthesia Technique: General ET Tube (ASA III) Primary Surgeon: Herson Aguilera Fluid Replacement, Intraop: 750 EBL in mLs: 5 Condition: Good Free Text/Narrative:: DICTATION [id number] CPT CODE [id number]
[2020-08-24] MEDS ORDERED: Lactated Ringers 1,000 ML IV SCH (13:30)
[2020-08-24 14:17] VITALS: PULSE 74
[2020-08-24 14:48] VITALS: BP 136/78
--- NOTE | 2020-08-24 15:17 | PCM.POSTAN ---
POST ANESTHESIA ASSESSMENT - MENTAL STATUS Mental Status: Alert - VITAL SIGNS Vital Signs: Last Vital Signs Temp 97.2 F 08/24/20 13:45 Pulse 74 08/24/20 14:30 Resp 16 08/24/20 14:30 BP 136/78 08/24/20 14:30 Pulse Ox 97 08/24/20 14:30 - RESPIRATORY Respiratory Status: Respiratory Rate WNL - CARDIOVASCULAR CV Status: Pulse Rate WNL - GASTROINTESTINAL GI Status: No Symptoms - POST OP HYDRATION Hydration Status: Adequate & Stable
--- NOTE | 2020-08-24 15:17 | PCM48HPAN ---
Post Anesthesia Note - EVALUATION WITHIN 48HRS OF ANESTHETIC Vital Signs in Normal Range: Yes Patient Participated in Evaluation: Yes Respiratory Function Stable: Yes Airway Patent: Yes Cardiovascular Function Stable: Yes Hydration Status Stable: Yes Pain Control Satisfactory: Yes Nausea and Vomiting Control Satisfactory: Yes Mental Status Recovered: Yes Vital Signs: Last Vital Signs Temp 97.2 F 08/24/20 13:45 Pulse 74 08/24/20 14:30 Resp 16 08/24/20 14:30 BP 136/78 08/24/20 14:30 Pulse Ox 97 08/24/20 14:30
--- NOTE | 2020-08-25 09:50 | OR ---
SURGEON: Herson Aguilera M.D. DATE OF PROCEDURE: 08/24/2020 ADDENDUM: OPERATION PERFORMED: Layered 8 cm closure of the left forearm. LENORA / MORALES /[id number]
--- NOTE | 2020-08-25 10:20 | OR ---
SURGEON: Herson Aguilera M.D. DATE OF PROCEDURE: 08/24/2020 OPERATION PERFORMED: Excision of superficial spreading melanoma site, left forearm. PRIMARY SURGEON: Herson Aguilera MD ANESTHESIA: General endotracheal. ASA CLASSIFICATION: III. 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 ESTIMATED BLOOD LOSS: 5 mL. INTRAOPERATIVE FLUID REPLACEMENT: 750 mL of crystalloid. DESCRIPTION OF PROCEDURE: The patient was taken to the operating room and placed on the operating table in the supine position with the arm board placed on the left side. The surgical site had been marked prior to the patient entering the operating room. Time-out was called for appropriate identification of the patient and procedure. Following satisfactory attainment of general endotracheal anesthesia, the left forearm was prepped with Betadine solution and sterile drapes were applied. The stockinette was then incised over the lesion. The lesion was again measured, and it measures 1.1 cm. Skin incision was marked out. However, there was not a great amount of excess skin on the forearm. Therefore, our margins were approximately 2 mm on the each of the widest sides of the melanoma. With incision having been made, the apex was marked with 2-0 silk suture. Using electrocautery, the specimen was removed in its entirety including the subcutaneous tissue down to the superficial fascia. Bleeding sites were electrocoagulated. The wound was then inspected for hemostasis, and hemostasis was complete. The incision was then closed in 2 layers approximating the subcutaneous tissue with interrupted 3-0 Vicryl working from both ends towards the middle portion of the incision. Once that was reapproximated, although there was a significant area that was wider in the midportion of the incision secondary to the amount of tissue that had to be removed, it was also necessary to do significant undermining to try and bring the surgical site together. Prior to completing the closure, the skin around the excision site was infiltrated with 7 mL of 0.5% Marcaine solution. Finally, the skin edges were reapproximated with a combination of interrupted 3-0 nylon sutures at the apexes and then in the midportion, chet sutures of 3-0 nylon also placed. Once that was all accomplished, there was a moderate amount of tension, although the wound at this time did appear viable. The wound was then dressed with a sterile Tegaderm pad. Sponge, needle, and instrument counts were all correct. Following emergence from anesthesia and extubation, the patient was taken to recovery room in satisfactory condition. LENORA NIELSEN /[id number]
== END 2020-08-24 15:11 | disposition home or self-care (01) ==
LOC: MW.SDS 11:05
PROVIDERS: ATTEND Surgery
DX: C43.62 Malignant melanoma of left upper limb, including shoulder (principal); I11.0 Hypertensive heart disease with heart failure; I50.9 Heart failure, unspecified; I48.91 Unspecified atrial fibrillation; I25.10 Atherosclerotic heart disease of native coronary artery without angina pectoris; E66.01 Morbid (severe) obesity due to excess calories; E11.42 Type 2 diabetes mellitus with diabetic polyneuropathy; Z79.82 Long term (current) use of aspirin; Z79.84 Long term (current) use of oral hypoglycemic drugs; Z98.890 Other specified postprocedural states; Z68.39 Body mass index [BMI] 39.0-39.9, adult
CPT/HCPCS: 11602; 36415; 85610; J2250; J2704; J3490; J7120; 00400; J2405; J3010

== ENCOUNTER 2021-09-14 15:49 | Observation (INO) | payer MEDICARE, OTHER ==
[2021-09-14] MEDS ORDERED: Sodium Chloride 0.9% 2.5 ML Syringe FLUSH PRN (16:06)
[2021-09-14] MEDS ORDERED: Sodium Chloride 0.9% 10 ML Syringe FLUSH PRN (16:06)
[2021-09-14 17:07] LABS: CARBON DIOXIDE,CO2 25.8 mmol/L (21.0-32.0); POTASSIUM,K 4.7 mmol/L (3.5-5.1)
[2021-09-14] MEDS ORDERED: Ferrous Sulfate 325 MG Tab ONE (23:54)
[2021-09-14] MEDS: Ferrous Sulfate 325 MG Tab PO SCH (23:58)
[2021-09-15] MEDS ORDERED: Glucagon,Human Recombinant 1 MG Vial IM PRN (00:43)
[2021-09-15] MEDS ORDERED: 50% Dextrose in Water 50 ML Syringe IVPUSH PRN (00:43)
[2021-09-15 04:31] LABS: CARBON DIOXIDE,CO2 25.3 mmol/L (21.0-32.0); POTASSIUM,K 4.6 mmol/L (3.5-5.1)
[2021-09-15] MEDS: Insulin Aspart 100 Units/ML 3 ML Pen SUBCUT SCH ×3 (06:33→17:18)
[2021-09-15] MEDS ORDERED: Warfarin 5 MG Tab PO SCH (09:00)
[2021-09-15] MEDS: Metoprolol Tartrate 50 MG Tab PO SCH ×2 (10:43→20:26)
[2021-09-15] MEDS: Aspirin 81 MG Tab.Chew PO SCH (14:16)
[2021-09-15] MEDS: Warfarin Sliding Scale PO SCH (15:30)
[2021-09-15] MEDS: Ferrous Sulfate 325 MG Tab PO SCH (20:26)
[2021-09-16 06:58] LABS: POTASSIUM,K 4.4 mmol/L (3.5-5.1)
[2021-09-16] MEDS: Insulin Aspart 100 Units/ML 3 ML Pen SUBCUT SCH ×2 (07:45→13:10)
[2021-09-16] MEDS: Metoprolol Tartrate 50 MG Tab PO SCH (08:07)
[2021-09-16] MEDS: Aspirin 81 MG Tab.Chew PO SCH (08:07)
[2021-09-16] MEDS ORDERED: Multivitamin Tab PO SCH (09:00)
[2021-09-16] MEDS ORDERED: Furosemide 40 MG Tab PO SCH (09:00)
[2021-09-16 12:49] VITALS: BP 159/78; PULSE 82
[2021-09-16] MEDS ORDERED: Warfarin 2.5 MG Tab PO SCH (14:00)
[2021-09-16] MEDS: Warfarin Sliding Scale PO SCH (14:22)
== END 2021-09-16 13:57 | disposition home or self-care (01) ==
LOC: MW.ED 15:49 → MW.MS 17:40
PROVIDERS: ADMIT Internal Medicine; ATTEND Internal Medicine
DX: R07.89 Other chest pain (principal); R00.1 Bradycardia, unspecified; I25.10 Atherosclerotic heart disease of native coronary artery without angina pectoris; I48.91 Unspecified atrial fibrillation; E78.00 Pure hypercholesterolemia, unspecified; I10 Essential (primary) hypertension; E66.9 Obesity, unspecified; E11.42 Type 2 diabetes mellitus with diabetic polyneuropathy; Z95.1 Presence of aortocoronary bypass graft; Z79.82 Long term (current) use of aspirin; Z79.899 Other long term (current) drug therapy; Z79.01 Long term (current) use of anticoagulants; Z87.891 Personal history of nicotine dependence; Z20.822 Contact with and (suspected) exposure to COVID-19
CPT/HCPCS: 36415; 71045; 71045-26; 80048; 80053; 82947; 83735; 84484; 85025; 85610; 93005; 93010; 99284; 99285-25; A9270-GY; G0378; J1815-GY; J3490; U0002

== ENCOUNTER 2021-11-15 09:56 | Emergency (ER) | payer MEDICARE, OTHER ==
[2021-11-15] MEDS ORDERED: Acetaminophen 500 MG Tab PO ONE (10:02)
[2021-11-15] MEDS ORDERED: Ibuprofen Susp 100 MG/5 ML 10 ML UD Cup PO ONE (10:05)
[2021-11-15 11:58] VITALS: BP 144/82; PULSE 82
== END 2021-11-15 11:54 | disposition home or self-care (01) ==
LOC: MW.ED 09:56
DX: M25.511 Pain in right shoulder (principal); I10 Essential (primary) hypertension; E11.9 Type 2 diabetes mellitus without complications; E66.9 Obesity, unspecified; Z68.30 Body mass index [BMI] 30.0-30.9, adult; Z79.899 Other long term (current) drug therapy; Z79.82 Long term (current) use of aspirin; Z79.01 Long term (current) use of anticoagulants; W19.XXXA Unspecified fall, initial encounter
CPT/HCPCS: 73030-26-RT; 73030-RT; 99282; 99283

== ENCOUNTER 2022-04-10 09:17 | Emergency (ER) | payer MEDICARE, OTHER ==
[2022-04-10 10:44] VITALS: BP 137/75; PULSE 84
== END 2022-04-10 10:45 | disposition home or self-care (01) ==
LOC: MW.ED 09:17
DX: H10.9 Unspecified conjunctivitis (principal); I48.91 Unspecified atrial fibrillation; E78.00 Pure hypercholesterolemia, unspecified; I10 Essential (primary) hypertension; E11.42 Type 2 diabetes mellitus with diabetic polyneuropathy; E66.9 Obesity, unspecified; Z68.39 Body mass index [BMI] 39.0-39.9, adult; Z79.01 Long term (current) use of anticoagulants; Z79.02 Long term (current) use of antithrombotics/antiplatelets; Z79.899 Other long term (current) drug therapy
CPT/HCPCS: 99283

== ENCOUNTER 2022-06-23 18:14 | Emergency (ER) | payer MEDICARE, OTHER ==
[2022-06-23 18:32] VITALS: BP 153/79; PULSE 89
== END 2022-06-23 18:47 | disposition home or self-care (01) ==
LOC: MW.ED 18:14
DX: Z76.0 Encounter for issue of repeat prescription (principal); E78.00 Pure hypercholesterolemia, unspecified; I10 Essential (primary) hypertension; I48.91 Unspecified atrial fibrillation; E11.42 Type 2 diabetes mellitus with diabetic polyneuropathy; E66.9 Obesity, unspecified; Z68.29 Body mass index [BMI] 29.0-29.9, adult; Z79.01 Long term (current) use of anticoagulants; Z79.899 Other long term (current) drug therapy
CPT/HCPCS: 99281

== ENCOUNTER 2022-11-07 13:19 | Emergency (ER) | payer MEDICARE, OTHER ==
[2022-11-07] MEDS ORDERED: Sodium Chloride 0.9% 2.5 ML Syringe FLUSH PRN (14:04)
[2022-11-07] MEDS ORDERED: Sodium Chloride 0.9% 10 ML Syringe FLUSH PRN (14:04)
[2022-11-07 14:13] LABS: BASOPHILS PERCENT AUTO 0.3 % (0.0-1.5); EOSINOPHILS PERCENT AUTO 0.3 % (0.0-7.0); HEMOGLOBIN 11.4 g/dL (13.0-17.0); LYMPHOCYTES ABSOLUTE AUTO 0.8 K/uL (0.6-2.4); LYMPHOCYTES PERCENT AUTO 8.5 % (16.0-40.0); MEAN CORPUSCULAR HEMOGLOBIN 31.2 pg (27.0-32.0); MEAN CORPUSCULAR HGB CONC 32.6 g/dL (31.0-37.0); MEAN CORPUSCULAR VOLUME 95.9 fL (80.0-98.0); MONOCYTES ABSOLUTE AUTO 0.7 K/uL (0.0-0.8); NEUTROPHILS PERCENT AUTO 83.9 % (48.0-80.0); NRBC ABSOLUTE 0 K/uL; PLATELET COUNT,PLT 162 K/uL (150-400); RED BLOOD CELL COUNT 3.65 M/uL (4.50-5.90); WHITE BLOOD CELL COUNT,WBC 9.51 K/uL (4.0-11.0)
[2022-11-07 14:17] LABS: A/G RATIO 0.9 (0.9-1.6); ALBUMIN 3.2 g/dL (3.4-5.0); BILIRUBIN TOTAL 0.4 mg/dL (0.2-1.0); CALCIUM 7.7 mg/dL (8.5-10.1); CARBON DIOXIDE,CO2 21.6 mmol/L (21.0-32.0); EST CRCL DRUG DOSING (CG) 34.47 mL/min; POTASSIUM,K 4.6 mmol/L (3.5-5.1); PROTEIN TOTAL,TP 6.6 g/dL (6.4-8.2)
[2022-11-07 14:25] LABS: INR 5.64 (0.86-1.11)
[2022-11-07 17:22] VITALS: BP 114/67; PULSE 91
== END 2022-11-07 17:21 | disposition home or self-care (01) ==
LOC: MW.ED 13:19
DX: I48.91 Unspecified atrial fibrillation (principal); R06.02 Shortness of breath; E66.9 Obesity, unspecified; I10 Essential (primary) hypertension; E78.00 Pure hypercholesterolemia, unspecified; E11.42 Type 2 diabetes mellitus with diabetic polyneuropathy; Z79.01 Long term (current) use of anticoagulants; Z79.02 Long term (current) use of antithrombotics/antiplatelets
CPT/HCPCS: 36415; 71045; 80053; 83880; 84484; 85025; 85610; 93005; 99285; J3490

== ENCOUNTER 2022-11-07 19:41 | Inpatient (IN) | payer MEDICARE, OTHER ==
[2022-11-07] MEDS ORDERED: Ondansetron 4 MG/2 ML SDV IVPUSH PRN (21:59)
[2022-11-07] MEDS ORDERED: Albuterol/Ipratropium 3.0-0.5 MG/3 ML Neb Soln NEB PRN (21:59)
[2022-11-07] MEDS ORDERED: Acetaminophen 325 MG Tab PO PRN (21:59)
[2022-11-07] MEDS ORDERED: Sodium Chloride 0.9% 20 ML SDV IV PRN (21:59)
[2022-11-07] MEDS ORDERED: Sodium Chloride 0.9% 10 ML Syringe FLUSH PRN (21:59)
[2022-11-07] MEDS ORDERED: Sodium Chloride 0.9% 2.5 ML Syringe FLUSH PRN (21:59)
[2022-11-07] MEDS ORDERED: Nitroglycerin 0.4 MG Tab.SL SL PRN (22:03)
[2022-11-07 22:40] LABS: BASOPHILS PERCENT AUTO 0.2 % (0.0-1.5); EOSINOPHILS PERCENT AUTO 0.1 % (0.0-7.0); HEMATOCRIT 31.2 % (38.0-50.0); HEMOGLOBIN 10.3 g/dL (13.0-17.0); LYMPHOCYTES ABSOLUTE AUTO 0.8 K/uL (0.6-2.4); LYMPHOCYTES PERCENT AUTO 8.1 % (16.0-40.0); MEAN CORPUSCULAR HEMOGLOBIN 31.8 pg (27.0-32.0); MEAN CORPUSCULAR VOLUME 96.3 fL (80.0-98.0); MONOCYTES ABSOLUTE AUTO 0.6 K/uL (0.0-0.8); MONOCYTES PERCENT AUTO 6.8 % (0.0-15.0); NEUTROPHILS PERCENT AUTO 84.8 % (48.0-80.0); NRBC ABSOLUTE 0 K/uL; PLATELET COUNT,PLT 145 K/uL (150-400); RED BLOOD CELL COUNT 3.24 M/uL (4.50-5.90); WHITE BLOOD CELL COUNT,WBC 9.44 K/uL (4.0-11.0)
[2022-11-08 06:31] LABS: BASOPHILS PERCENT AUTO 0.5 % (0.0-1.5); EOSINOPHILS PERCENT AUTO 0.2 % (0.0-7.0); HEMATOCRIT 28.6 % (38.0-50.0); HEMOGLOBIN 9.3 g/dL (13.0-17.0); LYMPHOCYTES ABSOLUTE AUTO 1.2 K/uL (0.6-2.4); LYMPHOCYTES PERCENT AUTO 14.6 % (16.0-40.0); MEAN CORPUSCULAR HEMOGLOBIN 30.9 pg (27.0-32.0); MEAN CORPUSCULAR HGB CONC 32.5 g/dL (31.0-37.0); MONOCYTES ABSOLUTE AUTO 0.5 K/uL (0.0-0.8); MONOCYTES PERCENT AUTO 5.9 % (0.0-15.0); NEUTROPHILS ABSOLUTE AUTO 6.4 K/uL (1.4-5.7); NEUTROPHILS PERCENT AUTO 78.8 % (48.0-80.0); NRBC ABSOLUTE 0 K/uL; PLATELET COUNT,PLT 134 K/uL (150-400); RED BLOOD CELL COUNT 3.01 M/uL (4.50-5.90); WHITE BLOOD CELL COUNT,WBC 8.08 K/uL (4.0-11.0)
[2022-11-08 06:45] LABS: INR 4.04 (0.86-1.11)
[2022-11-08 06:53] LABS: CALCIUM 7.7 mg/dL (8.5-10.1); CARBON DIOXIDE,CO2 23.5 mmol/L (21.0-32.0); CREATININE 2.1 mg/dL (0.8-1.3); EST CRCL DRUG DOSING (CG) 32.83 mL/min; MAGNESIUM 1.9 mg/dL (1.8-2.4); POTASSIUM,K 3.9 mmol/L (3.5-5.1)
[2022-11-08] MEDS: atorvaSTATin 20 MG Tab PO SCH (08:42)
[2022-11-08] MEDS: Metoprolol Tartrate 50 MG Tab PO SCH ×2 (08:42→21:00)
[2022-11-08] MEDS: amLODIPine 2.5 MG Tab PO SCH (08:43)
[2022-11-08] MEDS ORDERED: 50% Dextrose in Water 50 ML Syringe IVPUSH PRN (17:30)
[2022-11-08] MEDS ORDERED: Glucagon,Human Recombinant 1 MG Vial IM PRN (17:30)
[2022-11-08] MEDS: Insulin Aspart 100 Units/ML 3 ML Pen SUBCUT SCH (17:40)
[2022-11-08] MEDS ORDERED: Non-Formulary Medication 1 Each (Metoprolol Tartrate 100 MG Tablet) PO SCH (21:00)
[2022-11-09 06:17] LABS: BASOPHILS PERCENT AUTO 0.4 % (0.0-1.5); EOSINOPHILS ABSOLUTE AUTO 0.1 K/uL (0.0-0.7); EOSINOPHILS PERCENT AUTO 1.1 % (0.0-7.0); HEMATOCRIT 27.3 % (38.0-50.0); HEMOGLOBIN 8.8 g/dL (13.0-17.0); LYMPHOCYTES PERCENT AUTO 13.5 % (16.0-40.0); MEAN CORPUSCULAR HGB CONC 32.2 g/dL (31.0-37.0); MEAN CORPUSCULAR VOLUME 96.1 fL (80.0-98.0); MONOCYTES ABSOLUTE AUTO 0.5 K/uL (0.0-0.8); MONOCYTES PERCENT AUTO 7.4 % (0.0-15.0); NEUTROPHILS ABSOLUTE AUTO 5.6 K/uL (1.4-5.7); NEUTROPHILS PERCENT AUTO 77.6 % (48.0-80.0); NRBC ABSOLUTE 0 K/uL; PLATELET COUNT,PLT 127 K/uL (150-400); RED BLOOD CELL COUNT 2.84 M/uL (4.50-5.90); WHITE BLOOD CELL COUNT,WBC 7.18 K/uL (4.0-11.0)
[2022-11-09 06:33] LABS: INR 2.39 (0.86-1.11)
[2022-11-09 06:56] LABS: CALCIUM 7.8 mg/dL (8.5-10.1); CARBON DIOXIDE,CO2 18.3 mmol/L (21.0-32.0); CREATININE 1.9 mg/dL (0.8-1.3); EST CRCL DRUG DOSING (CG) 36.29 mL/min
[2022-11-09] MEDS: Insulin Aspart 100 Units/ML 3 ML Pen SUBCUT SCH ×3 (07:14→16:18)
[2022-11-09] MEDS: amLODIPine 2.5 MG Tab PO SCH (08:14)
[2022-11-09] MEDS: Metoprolol Tartrate 50 MG Tab PO SCH ×2 (08:14→20:11)
[2022-11-09] MEDS: atorvaSTATin 20 MG Tab PO SCH (08:15)
[2022-11-10 06:04] LABS: BASOPHILS PERCENT AUTO 0.6 % (0.0-1.5); EOSINOPHILS ABSOLUTE AUTO 0.1 K/uL (0.0-0.7); EOSINOPHILS PERCENT AUTO 1.2 % (0.0-7.0); HEMATOCRIT 23.6 % (38.0-50.0); HEMOGLOBIN 7.5 g/dL (13.0-17.0); LYMPHOCYTES ABSOLUTE AUTO 0.9 K/uL (0.6-2.4); LYMPHOCYTES PERCENT AUTO 18.2 % (16.0-40.0); MEAN CORPUSCULAR HGB CONC 31.8 g/dL (31.0-37.0); MEAN CORPUSCULAR VOLUME 97.5 fL (80.0-98.0); MONOCYTES ABSOLUTE AUTO 0.4 K/uL (0.0-0.8); MONOCYTES PERCENT AUTO 7.5 % (0.0-15.0); NEUTROPHILS ABSOLUTE AUTO 3.7 K/uL (1.4-5.7); NEUTROPHILS PERCENT AUTO 72.5 % (48.0-80.0); NRBC ABSOLUTE 0 K/uL; PLATELET COUNT,PLT 114 K/uL (150-400); RED BLOOD CELL COUNT 2.42 M/uL (4.50-5.90); WHITE BLOOD CELL COUNT,WBC 5.05 K/uL (4.0-11.0)
[2022-11-10 06:22] LABS: CALCIUM 7.6 mg/dL (8.5-10.1); CARBON DIOXIDE,CO2 24.5 mmol/L (21.0-32.0); CREATININE 1.7 mg/dL (0.8-1.3); EST CRCL DRUG DOSING (CG) 40.56 mL/min
[2022-11-10 06:23] LABS: INR 1.88 (0.86-1.11)
[2022-11-10] MEDS: Insulin Aspart 100 Units/ML 3 ML Pen SUBCUT SCH ×3 (06:51→16:45)
[2022-11-10] MEDS: Metoprolol Tartrate 50 MG Tab PO SCH ×2 (08:06→20:32)
[2022-11-10] MEDS: atorvaSTATin 20 MG Tab PO SCH (08:20)
[2022-11-10] MEDS: amLODIPine 2.5 MG Tab PO SCH (08:20)
[2022-11-10] MEDS: Ferrous Sulfate 325 MG Tab PO SCH ×2 (09:58→20:32)
[2022-11-10] MEDS ORDERED: Torsemide 20 MG Tab PO SCH (10:00)
[2022-11-11 06:02] LABS: BASOPHILS PERCENT AUTO 0.5 % (0.0-1.5); EOSINOPHILS ABSOLUTE AUTO 0.1 K/uL (0.0-0.7); HEMATOCRIT 25.5 % (38.0-50.0); LYMPHOCYTES ABSOLUTE AUTO 1.2 K/uL (0.6-2.4); LYMPHOCYTES PERCENT AUTO 18.4 % (16.0-40.0); MEAN CORPUSCULAR HEMOGLOBIN 30.5 pg (27.0-32.0); MEAN CORPUSCULAR HGB CONC 31.4 g/dL (31.0-37.0); MEAN CORPUSCULAR VOLUME 97.3 fL (80.0-98.0); MONOCYTES ABSOLUTE AUTO 0.4 K/uL (0.0-0.8); MONOCYTES PERCENT AUTO 6.4 % (0.0-15.0); NEUTROPHILS ABSOLUTE AUTO 4.6 K/uL (1.4-5.7); NEUTROPHILS PERCENT AUTO 73.7 % (48.0-80.0); NRBC ABSOLUTE 0 K/uL; PLATELET COUNT,PLT 152 K/uL (150-400); RED BLOOD CELL COUNT 2.62 M/uL (4.50-5.90); WHITE BLOOD CELL COUNT,WBC 6.25 K/uL (4.0-11.0)
[2022-11-11 06:18] LABS: INR 1.52 (0.86-1.11)
[2022-11-11 06:20] LABS: CALCIUM 7.7 mg/dL (8.5-10.1); CREATININE 1.8 mg/dL (0.8-1.3); EST CRCL DRUG DOSING (CG) 38.3 mL/min; MAGNESIUM 1.8 mg/dL (1.8-2.4); POTASSIUM,K 3.9 mmol/L (3.5-5.1)
[2022-11-11] MEDS: Insulin Aspart 100 Units/ML 3 ML Pen SUBCUT SCH (07:24)
[2022-11-11] MEDS: amLODIPine 2.5 MG Tab PO SCH (09:23)
[2022-11-11] MEDS: Ferrous Sulfate 325 MG Tab PO SCH (09:23)
[2022-11-11] MEDS: atorvaSTATin 20 MG Tab PO SCH (09:23)
[2022-11-11] MEDS: Metoprolol Tartrate 50 MG Tab PO SCH (09:23)
[2022-11-11 11:23] VITALS: BP 119/83; PULSE 93
== END 2022-11-11 11:20 | disposition home or self-care (01) | DRG 309 ==
LOC: MW.ED 19:41 → MW.MS 21:20 → OBSVTOIN 11-08 10:44 → MW.MS 11-08 11:09
PROVIDERS: ADMIT Family Medicine; ATTEND Family Medicine
DX: I48.21 Permanent atrial fibrillation (principal); I50.32 Chronic diastolic (congestive) heart failure; I11.0 Hypertensive heart disease with heart failure; S30.0XXA Contusion of lower back and pelvis, initial encounter; S30.1XXA Contusion of abdominal wall, initial encounter; R79.1 Abnormal coagulation profile; I25.10 Atherosclerotic heart disease of native coronary artery without angina pectoris; I48.91 Unspecified atrial fibrillation; G47.30 Sleep apnea, unspecified; E11.40 Type 2 diabetes mellitus with diabetic neuropathy, unspecified; D50.9 Iron deficiency anemia, unspecified; E66.01 Morbid (severe) obesity due to excess calories; Z86.010 Personal history of colon polyps; Z68.30 Body mass index [BMI] 30.0-30.9, adult; I10 Essential (primary) hypertension; Z79.82 Long term (current) use of aspirin; Z79.4 Long term (current) use of insulin; Z79.02 Long term (current) use of antithrombotics/antiplatelets; Z98.84 Bariatric surgery status; Z85.820 Personal history of malignant melanoma of skin; Z86.19 Personal history of other infectious and parasitic diseases; Z98.49 Cataract extraction status, unspecified eye; Z89.9 Acquired absence of limb, unspecified; E11.9 Type 2 diabetes mellitus without complications; Z85.038 Personal history of other malignant neoplasm of large intestine; W01.0XXA Fall on same level from slipping, tripping and stumbling without subsequent striking against object, initial encounter; E78.00 Pure hypercholesterolemia, unspecified; E66.9 Obesity, unspecified; Z79.01 Long term (current) use of anticoagulants; Z79.899 Other long term (current) drug therapy; Z95.5 Presence of coronary angioplasty implant and graft
CPT/HCPCS: 36415 ×2; 72131; 72192; 80048; 82550; 83735; 84484; 85025 ×2; 85610; 99285; A9270 ×3; 97162-GP; 99284; J1815-GY

== ENCOUNTER 2023-11-11 19:14 | Emergency (ER) | payer MEDICARE, OTHER ==
[2023-11-11 20:00] LABS: BASOPHILS ABSOLUTE AUTO 0.04 K/uL (0.00-0.20); BASOPHILS PERCENT AUTO 0.6 % (0.0-1.0); EOSINOPHILS ABSOLUTE AUTO 0.02 K/uL (0.00-0.45); EOSINOPHILS PERCENT AUTO 0.3 % (0.0-6.0); HEMATOCRIT 29.2 % (42.0-52.0); HEMOGLOBIN 10.1 g/dL (14.0-18.0); IMMATURE GRAN ABSOLUTE AUTO 0.03 K/uL (0.00-0.05); IMMATURE GRAN PERCENT AUTO 0.4 % (0.0-0.4); LYMPHOCYTES ABSOLUTE AUTO 0.55 K/uL (1.00-4.80); LYMPHOCYTES PERCENT AUTO 7.9 % (24.0-44.0); MEAN CORPUSCULAR HEMOGLOBIN 33.2 pg (28.0-32.0); MEAN CORPUSCULAR HGB CONC 34.6 g/dL (32.0-36.0); MEAN CORPUSCULAR VOLUME 96.1 fL (83.0-99.0); MEAN PLATELET VOLUME 10.5 fL (9.4-12.4); MONOCYTES ABSOLUTE AUTO 0.57 K/uL (0.00-0.80); MONOCYTES PERCENT AUTO 8.2 % (0.0-8.0); NEUTROPHILS ABSOLUTE AUTO 5.77 K/uL (1.80-7.70); NEUTROPHILS PERCENT AUTO 82.6 % (41.0-71.0); PLATELET COUNT,PLT 203 K/uL (150-400); RED BLOOD CELL COUNT 3.04 M/uL (4.52-5.90); WHITE BLOOD CELL COUNT,WBC 6.98 K/uL (3.9-11.3)
[2023-11-11 20:14] LABS: INR 1.56 (0.86-1.11)
[2023-11-11] MEDS ORDERED: Iopamidol 755 MG/ML 500 ML Multipack Bottle IVPUSH STA (20:18)
[2023-11-11 20:22] LABS: A/G RATIO 0.8 (0.9-1.6); ALBUMIN 2.9 g/dL (3.4-5.0); BILIRUBIN TOTAL 0.8 mg/dL (0.2-1.0); CALCIUM 8.4 mg/dL (8.5-10.1); CARBON DIOXIDE,CO2 21.6 mmol/L (21.0-32.0); CREATININE 2.7 mg/dL (0.8-1.3); EST CRCL DRUG DOSING (CG) 26.74 mL/min; POTASSIUM,K 5.4 mmol/L (3.5-5.1); PROTEIN TOTAL,TP 6.6 g/dL (6.4-8.2)
[2023-11-11] MEDS: Sodium Chloride 0.9% 10 ML Syringe FLUSH PRN (20:56)
[2023-11-11] MEDS: Sodium Chloride 0.9% 2.5 ML Syringe FLUSH PRN (20:56)
[2023-11-11 20:58] LABS: APPEARANCE,URINE CLEAR; BILIRUBIN,URINE NEGATIVE (NEGATIVE); COLOR,URINE YELLOW; GLUCOSE,URINE 500 mg/dL (NEGATIVE); KETONES,URINE NEGATIVE (NEGATIVE); LEUKOCYTE ESTERASE,URINE NEGATIVE (NEGATIVE); NITRITE,URINE NEGATIVE (NEGATIVE); OCCULT BLOOD,URINE MODERATE (NEGATIVE); PH,URINE 5.5 (5.0-8.0); PROTEIN,URINE NEGATIVE (NEGATIVE); UROBILINOGEN,URINE 0.2 EU/dL (<2.0)
[2023-11-11 21:09] LABS: BACTERIA,URINE RARE (NEGATIVE); EPITHELIAL CELLS,URINE RARE (NONE-FEW); WBC,URINE 0-1 (0-5/HPF)
[2023-11-11] MEDS: Metoprolol Tartrate 5 MG/5 ML SDV IVPUSH STA (21:28)
[2023-11-12 05:50] VITALS: BP 132/87; PULSE 102
== END 2023-11-11 23:48 ==
LOC: MW.ED 19:14
DX: K92.2 Gastrointestinal hemorrhage, unspecified (principal); I48.19 Other persistent atrial fibrillation; N17.9 Acute kidney failure, unspecified; I10 Essential (primary) hypertension; E78.00 Pure hypercholesterolemia, unspecified; E66.9 Obesity, unspecified; E11.9 Type 2 diabetes mellitus without complications; Z68.35 Body mass index [BMI] 35.0-35.9, adult; Z79.899 Other long term (current) drug therapy; Z75.8 Other problems related to medical facilities and other health care
CPT/HCPCS: 36415; 80053; 81001; 85025; 85610; 86850; 86900; 86901; 93005; 96374; 99285; J3490; 93010

== ENCOUNTER 2023-11-29 13:44 | Emergency (ER) | payer MEDICARE, OTHER ==
[2023-11-29] MEDS ORDERED: Sodium Chloride 0.9% 10 ML Syringe FLUSH PRN (13:58)
[2023-11-29] MEDS ORDERED: Sodium Chloride 0.9% 2.5 ML Syringe FLUSH PRN (13:58)
[2023-11-29 14:13] LABS: BASOPHILS ABSOLUTE AUTO 0.03 K/uL (0.00-0.20); BASOPHILS PERCENT AUTO 0.5 % (0.0-1.0); EOSINOPHILS ABSOLUTE AUTO 0.08 K/uL (0.00-0.45); EOSINOPHILS PERCENT AUTO 1.4 % (0.0-6.0); HEMOGLOBIN 9.1 g/dL (14.0-18.0); IMMATURE GRAN ABSOLUTE AUTO 0.02 K/uL (0.00-0.05); IMMATURE GRAN PERCENT AUTO 0.4 % (0.0-0.4); LYMPHOCYTES ABSOLUTE AUTO 0.61 K/uL (1.00-4.80); LYMPHOCYTES PERCENT AUTO 10.8 % (24.0-44.0); MEAN CORPUSCULAR HEMOGLOBIN 33.1 pg (28.0-32.0); MEAN CORPUSCULAR HGB CONC 32.5 g/dL (32.0-36.0); MEAN CORPUSCULAR VOLUME 101.8 fL (83.0-99.0); MEAN PLATELET VOLUME 10.6 fL (9.4-12.4); MONOCYTES ABSOLUTE AUTO 0.44 K/uL (0.00-0.80); MONOCYTES PERCENT AUTO 7.8 % (0.0-8.0); NEUTROPHILS ABSOLUTE AUTO 4.49 K/uL (1.80-7.70); NEUTROPHILS PERCENT AUTO 79.1 % (41.0-71.0); PLATELET COUNT,PLT 158 K/uL (150-400); RED BLOOD CELL COUNT 2.75 M/uL (4.52-5.90); WHITE BLOOD CELL COUNT,WBC 5.67 K/uL (3.9-11.3)
[2023-11-29] MEDS: Sodium Chloride 0.9% 1,000 ML IV ONE (14:15)
[2023-11-29 14:23] LABS: APPEARANCE,URINE CLEAR; BILIRUBIN,URINE NEGATIVE (NEGATIVE); COLOR,URINE YELLOW; GLUCOSE,URINE 500 mg/dL (NEGATIVE); KETONES,URINE NEGATIVE (NEGATIVE); LEUKOCYTE ESTERASE,URINE NEGATIVE (NEGATIVE); NITRITE,URINE NEGATIVE (NEGATIVE); OCCULT BLOOD,URINE NEGATIVE (NEGATIVE); PROTEIN,URINE NEGATIVE (NEGATIVE); UROBILINOGEN,URINE 0.2 EU/dL (<2.0)
[2023-11-29 14:26] LABS: INR 1.56 (0.86-1.11); PTT,PARTIAL THROMBOPLSTIN TIME 34.2 SEC (23.9-30.7)
[2023-11-29 14:45] LABS: A/G RATIO 0.8 (0.9-1.6); ALANINE AMINOTRANSFERASE,ALT 33 IU/L (14-63); ALBUMIN 2.8 g/dL (3.4-5.0); ALKALINE PHOSPHATASE 83 U/L (46-116); ASPARTATE AMNIOTRANSFERASE,AST 26 IU/L (15-37); BILIRUBIN TOTAL 0.7 mg/dL (0.2-1.0); BLOOD UREA NITROGEN,BUN 35 mg/dL (7.0-18.0); CALCIUM 8.5 mg/dL (8.5-10.1); CARBON DIOXIDE,CO2 26.8 mmol/L (21.0-32.0); CHLORIDE,CL 106 mmol/L (98-107); CREATININE 1.9 mg/dL (0.8-1.3); EST CRCL DRUG DOSING (CG) 35.22 mL/min; GLUCOSE RANDOM 131 mg/dL (74-106); MAGNESIUM 1.9 mg/dL (1.8-2.4); POTASSIUM,K 5.4 mmol/L (3.5-5.1); PROTEIN TOTAL,TP 6.4 g/dL (6.4-8.2); SODIUM,NA 139 mmol/L (136-148)
[2023-11-29 14:46] LABS: ESTIMATED GFR 37 mL/min (>60); ETHANOL BLOOD MEDICAL < 3.0 mg/dL
[2023-11-29 16:41] VITALS: BP 131/80; PULSE 91
[2023-11-29] MEDS: Pantoprazole 40 MG in Sodium Chloride 0.9% 10 ML IVPUSH ONE (16:44)
== END 2023-11-29 17:29 ==
LOC: MW.ED 13:44
DX: K92.2 Gastrointestinal hemorrhage, unspecified (principal); I48.19 Other persistent atrial fibrillation; D64.9 Anemia, unspecified; I10 Essential (primary) hypertension; E78.00 Pure hypercholesterolemia, unspecified; E11.9 Type 2 diabetes mellitus without complications; E66.9 Obesity, unspecified; Z79.899 Other long term (current) drug therapy; Z79.02 Long term (current) use of antithrombotics/antiplatelets; Z79.01 Long term (current) use of anticoagulants; Z75.8 Other problems related to medical facilities and other health care; Z68.36 Body mass index [BMI] 36.0-36.9, adult
CPT/HCPCS: 36415; 36430; 71045; 80053; 80307; 81003; 83735; 84484; 85025; 85610; 85730; 86850; 86900; 86901; 86920; 93005; 96361; 96374; 99285; J2470; J3490; J7030; P9016; 99284

== ENCOUNTER 2023-12-05 16:45 | Emergency (ER) | payer MEDICARE, OTHER ==
[2023-12-05 18:14] LABS: BASOPHILS ABSOLUTE AUTO 0.03 K/uL (0.00-0.20); BASOPHILS PERCENT AUTO 0.5 % (0.0-1.0); EOSINOPHILS ABSOLUTE AUTO 0.06 K/uL (0.00-0.45); EOSINOPHILS PERCENT AUTO 1.1 % (0.0-6.0); HEMATOCRIT 24.1 % (42.0-52.0); HEMOGLOBIN 7.9 g/dL (14.0-18.0); IMMATURE GRAN ABSOLUTE AUTO 0.02 K/uL (0.00-0.05); IMMATURE GRAN PERCENT AUTO 0.4 % (0.0-0.4); LYMPHOCYTES ABSOLUTE AUTO 0.73 K/uL (1.00-4.80); LYMPHOCYTES PERCENT AUTO 13.3 % (24.0-44.0); MEAN CORPUSCULAR HEMOGLOBIN 32.1 pg (28.0-32.0); MEAN CORPUSCULAR HGB CONC 32.8 g/dL (32.0-36.0); MEAN PLATELET VOLUME 10.1 fL (9.4-12.4); MONOCYTES PERCENT AUTO 9.1 % (0.0-8.0); NEUTROPHILS ABSOLUTE AUTO 4.15 K/uL (1.80-7.70); NEUTROPHILS PERCENT AUTO 75.6 % (41.0-71.0); PLATELET COUNT,PLT 211 K/uL (150-400); RED BLOOD CELL COUNT 2.46 M/uL (4.52-5.90); WHITE BLOOD CELL COUNT,WBC 5.49 K/uL (3.9-11.3)
[2023-12-05 18:37] LABS: INR 1.37 (0.86-1.11)
[2023-12-05 19:07] LABS: A/G RATIO 0.8 (0.9-1.6); ALBUMIN 2.6 g/dL (3.4-5.0); BILIRUBIN TOTAL 0.5 mg/dL (0.2-1.0); CALCIUM 8.4 mg/dL (8.5-10.1); CREATININE 1.9 mg/dL (0.8-1.3); EST CRCL DRUG DOSING (CG) 35.22 mL/min; POTASSIUM,K 5.1 mmol/L (3.5-5.1)
[2023-12-05] MEDS: Sodium Chloride 0.9% 10 ML Syringe FLUSH PRN (19:09)
[2023-12-05] MEDS: Sodium Chloride 0.9% 2.5 ML Syringe FLUSH PRN (19:09)
[2023-12-05] MEDS: Pantoprazole 80 MG in Sodium Chloride 0.9% 10 ML IVPUSH ONE (19:09)
[2023-12-05] MEDS: Iopamidol 755 MG/ML 500 ML Multipack Bottle IVPUSH STA (19:33)
[2023-12-05 20:50] LABS: INR 1.33 (0.86-1.11); PTT,PARTIAL THROMBOPLSTIN TIME 31.9 SEC (23.9-30.7)
[2023-12-05] MEDS: Ondansetron 4 MG/2 ML SDV IVPUSH ONE (21:23)
[2023-12-05] MEDS: Benzocaine 20% Topical Spray UD MUCMEM ONE (22:12)
[2023-12-05] MEDS: Octreotide 500 MCG in Sodium Chloride 0.9% 495 ML IV SCH (22:27)
[2023-12-06 05:40] VITALS: BP 99/59; PULSE 90
== END 2023-12-05 23:00 ==
LOC: MW.ED 16:45
DX: D62 Acute posthemorrhagic anemia (principal); F10.90 Alcohol use, unspecified, uncomplicated; K92.2 Gastrointestinal hemorrhage, unspecified; I95.9 Hypotension, unspecified; E78.00 Pure hypercholesterolemia, unspecified; I48.91 Unspecified atrial fibrillation; I12.9 Hypertensive chronic kidney disease with stage 1 through stage 4 chronic kidney disease, or unspecified chronic kidney disease; E11.22 Type 2 diabetes mellitus with diabetic chronic kidney disease; N18.9 Chronic kidney disease, unspecified; N17.9 Acute kidney failure, unspecified; E11.42 Type 2 diabetes mellitus with diabetic polyneuropathy; E66.9 Obesity, unspecified; Z68.36 Body mass index [BMI] 36.0-36.9, adult; Z95.1 Presence of aortocoronary bypass graft; Z79.899 Other long term (current) drug therapy; Z75.8 Other problems related to medical facilities and other health care
CPT/HCPCS: 36415; 36430; 71045; 74177; 80053; 83605; 83690; 83735; 83880; 84484; 85025; 85610; 85652; 85730; 86140; 86850; 86900; 86901; 86920; 93005; 96365; 96375; 99285; J2354; J2405; J2470; J3490; J7040; P9016; P9017; Q9967; 93010